=== PATIENT | female | born 1995 | race Caucasian/White ===

== ENCOUNTER 2017-10-21 10:12 | Outpatient (CLI) | payer MEDICAID, SELFPAY ==
[2017-10-21 10:46] LABS: HCT 33.1 % (36.0-46.0); HGB 11.1 g/dL (12.0-15.5); Mean Corp. HGB Concentration 33.5 g/dL (32.0-36.0); Mean Corpuscular Volume 95.4 fL (80-95); Mean Platelet Volume 11.4 fL (8.0-11.0); Platelet Count 226 x1000/uL (130-400); RBC 3.47 m/cumm (4.00-5.20); RBC Distribution Width 12.3 % (11.7-14.6); White Blood Cell Count 9.61 k/cumm (4.4-10.8)
[2017-10-21 10:50] LABS: Glucose,1 Hr (Glucola) 80 mg/dL (80-140)
== END 2017-10-21 10:32 ==
PROVIDERS: PCP Family Medicine; Visit Provider Obstetrics & Gynecology Gynecology
DX: Z34.83 Encounter for supervision of other normal pregnancy, third trimester (principal)
CPT/HCPCS: 36415; 82950; 85027

== ENCOUNTER 2017-11-22 12:55 | Observation (INO) | payer MEDICAID, SELFPAY ==
[2017-11-22] MEDS: Lactated Ringers 1,000 ML 1000 ML IV (14:49)
[2017-11-22] MEDS: Normal Saline Flush 10 ML SYR 20 ML (14:49)
[2017-11-22] MEDS: Lactated Ringers 1,000 ML 200 ML IV (16:14)
[2017-11-22 16:20] LABS: Bilirubin Negative (Negative); Blood Trace-intact (Negative); Clarity Clear; Glucose Negative (Negative); Ketones Negative (Negative); Leukocyte Esterase Negative (Negative); Nitrite Negative (Negative); Urobilinogen 0.2 EU/dL (Up TO 0.2)
[2017-11-22 16:43] LABS: Bacteria Negative HPF (Negative); C & S Indicated? C&S Done As Ordered; Casts Negative LPF (Negative); Crystals Negative HPF (Negative); Epithelial Cells Negative HPF (Negative); Mucus Negative (Negative); Other Cells Negative (Negative); RBC Negative (0-2); WBC Negative HPF (0-5)
[2017-11-22] MEDS: Terbutaline 1 MG/ML VIAL 0.25 MG SC (17:21)
[2017-11-23 18:05] LABS: Chlamydia Result Negative; GC Result Negative; Specimen Description CERVIX
== END 2017-11-22 19:05 | disposition home or self-care (01) ==
PROVIDERS: Admitting Provider Advanced Practice Midwife; PCP Family Medicine; Visit Provider Advanced Practice Midwife
DX: O60.03 Preterm labor without delivery, third trimester (principal); Z3A.33 33 weeks gestation of pregnancy
CPT/HCPCS: 87491; 87591; 96360; 96361; 81003; 81015; 87086; 87480; 87510; 87660; G0378

== ENCOUNTER 2017-11-23 15:58 | Outpatient (CLI) | payer MEDICAID, SELFPAY | END 2017-11-23 16:18 | PROVIDERS: PCP Family Medicine; Visit Provider Advanced Practice Midwife | DX: O60.03 Preterm labor without delivery, third trimester (principal); Z3A.33 33 weeks gestation of pregnancy | CPT/HCPCS: 59025 ==

== ENCOUNTER 2017-12-03 17:57 | Outpatient (CLI) | payer MEDICAID, SELFPAY | END 2017-12-03 18:17 | PROVIDERS: PCP Family Medicine; Visit Provider Advanced Practice Midwife | DX: O60.03 Preterm labor without delivery, third trimester (principal); Z3A.34 34 weeks gestation of pregnancy | CPT/HCPCS: 59025 ==

== ENCOUNTER 2017-12-16 16:32 | Outpatient (REF) | payer MEDICAID, SELFPAY | END 2017-12-16 16:52 | LOC: LBN 16:32 | PROVIDERS: PCP Family Medicine; Visit Provider Advanced Practice Midwife | DX: Z34.93 Encounter for supervision of normal pregnancy, unspecified, third trimester (principal); Z36.85 Encounter for antenatal screening for Streptococcus B | CPT/HCPCS: 87081 ==

== ENCOUNTER 2017-12-19 20:59 | Observation (INO) | payer MEDICAID, SELFPAY | END 2017-12-19 22:05 | disposition home or self-care (01) | LOC: OBS 21:10 | PROVIDERS: Admitting Provider Nurse Practitioner; PCP Family Medicine; Visit Provider Nurse Practitioner | DX: O47.1 False labor at or after 37 completed weeks of gestation (principal); Z3A.37 37 weeks gestation of pregnancy | CPT/HCPCS: G0378 ==

== ENCOUNTER 2017-12-25 20:57 | Observation (INO) | payer MEDICAID, SELFPAY | END 2017-12-25 22:15 | disposition home or self-care (01) | LOC: OBS 21:04 | PROVIDERS: Admitting Provider Advanced Practice Midwife; PCP Family Medicine; Visit Provider Advanced Practice Midwife | DX: O47.03 False labor before 37 completed weeks of gestation, third trimester (principal); O98.313 Other infections with a predominantly sexual mode of transmission complicating pregnancy, third trimester; Z3A.38 38 weeks gestation of pregnancy; O99.820 Streptococcus B carrier state complicating pregnancy | CPT/HCPCS: G0378 ==

== ENCOUNTER 2017-12-29 10:00 | Inpatient (IN) | payer MEDICAID, SELFPAY ==
[2017-12-29 11:03] LABS: ROM Plus Positive
[2017-12-29 12:22] LABS: HCT 35.7 % (36.0-46.0); Mean Corp. HGB Concentration 33.6 g/dL (32.0-36.0); Mean Corpuscular Hemoglobin 31.5 pg (27.0-33.0); Mean Corpuscular Volume 93.7 fL (80-95); Mean Platelet Volume 12.9 fL (8.0-11.0); Platelet Count 204 x1000/uL (130-400); RBC 3.81 m/cumm (4.00-5.20); RBC Distribution Width 12.5 % (11.7-14.6); White Blood Cell Count 9.37 k/cumm (4.4-10.8)
[2017-12-29] MEDS: valACYclovir 500 MG TAB PO (22:16)
[2017-12-30] MEDS: Lactated Ringers 1,000 ML 125 ML IV ×2 (01:09→10:45)
[2017-12-30] MEDS: Hamamelis Leaf/Glycerin 100 EACH BOX PR (09:16)
[2017-12-30] MEDS: Acetaminophen 325 MG TAB 650 MG PO (18:22)
[2017-12-30] MEDS: valACYclovir 500 MG TAB PO (22:39)
[2017-12-31 05:52] LABS: HCT 31.7 % (36.0-46.0); HGB 10.4 g/dL (12.0-15.5); Mean Corp. HGB Concentration 32.8 g/dL (32.0-36.0); Mean Corpuscular Hemoglobin 31.5 pg (27.0-33.0); Mean Corpuscular Volume 96.1 fL (80-95); Platelet Count 200 x1000/uL (130-400); RBC Distribution Width 12.8 % (11.7-14.6)
[2017-12-31] MEDS: valACYclovir 500 MG TAB PO (21:34)
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
== END 2018-01-01 12:30 | disposition home or self-care (01) | DRG 806 ==
PROVIDERS: Admitting Provider Nurse Practitioner; PCP Family Medicine; Visit Provider Nurse Practitioner
DX: O99.824 Streptococcus B carrier state complicating childbirth (principal); O98.32 Other infections with a predominantly sexual mode of transmission complicating childbirth; Z37.0 Single live birth; O76 Abnormality in fetal heart rate and rhythm complicating labor and delivery; O69.2XX0 Labor and delivery complicated by other cord entanglement, with compression, not applicable or unspecified; O75.89 Other specified complications of labor and delivery; O92.79 Other disorders of lactation; Z3A.38 38 weeks gestation of pregnancy; A60.00 Herpesviral infection of urogenital system, unspecified
CPT/HCPCS: 36415; 84112; 85027; 86850; 86900; 86901; 99239; J2540; J3490

== ENCOUNTER 2018-06-06 15:54 | Emergency (ER) | payer MEDICAID, SELFPAY ==
[2018-06-06 15:57] VITALS: BP 97/64; PULSE 91; RESP 18; TEMP 36.4; O2SAT 96
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
[2018-06-06] MEDS: Acetaminophen 325 MG TAB 650 MG PO (16:09)
[2018-06-06] MEDS: Ibuprofen 600 MG TAB PO (16:09)
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
== END 2018-06-06 16:15 | disposition home or self-care (01) ==
LOC: ER 16:06
PROVIDERS: Emergency Provider Physician Assistant; PCP Family Medicine
DX: J06.9 Acute upper respiratory infection, unspecified (principal); R51 Headache; H92.02 Otalgia, left ear; R09.81 Nasal congestion
CPT/HCPCS: 99282

== ENCOUNTER 2018-11-17 17:01 | Emergency (ER) | payer MEDICAID, SELFPAY ==
[2018-11-17 17:17] VITALS: BP 119/73; PULSE 89; RESP 16; TEMP 36.6; O2SAT 98
[2018-11-17 17:48] LABS: Bilirubin Negative (Negative); Blood Moderate (Negative); Clarity Sl Cloudy (Clear); Glucose Negative (Negative); Ketones Negative (Negative); Leukocyte Esterase Moderate (Negative); Nitrite Negative (Negative); Urobilinogen 0.2 EU/dL (Up TO 0.2)
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
[2018-11-17 17:58] LABS: Bacteria Few HPF (Negative); C & S Indicated? Yes; Crystals Negative HPF (Negative); Epithelial Cells Few HPF (Negative); Mucus Negative (Negative); RBC 20-50 (0-2); WBC 20-50 HPF (0-5)
== END 2018-11-17 18:50 | disposition home or self-care (01) ==
PROVIDERS: Emergency Provider Physician Assistant; PCP Family Medicine
DX: N39.0 Urinary tract infection, site not specified (principal); B95.7 Other staphylococcus as the cause of diseases classified elsewhere
CPT/HCPCS: 87077; 99283; 81003; 81015; 87086

== ENCOUNTER 2019-07-16 16:45 | Outpatient (REF) | payer MEDICAID, SELFPAY ==
[2019-07-16 16:52] LABS: HCG Quant, Pregnancy < 1 mIU/mL (1-3)
== END 2019-07-16 17:05 ==
LOC: LBN 16:45
PROVIDERS: PCP Family Medicine; Visit Provider Obstetrics & Gynecology
DX: N91.2 Amenorrhea, unspecified (principal)
CPT/HCPCS: 84702

== ENCOUNTER 2019-10-22 22:06 | Outpatient (REF) | payer MEDICAID, SELFPAY ==
[2019-10-22 21:42] LABS: HCG Quant, Pregnancy 449 mIU/mL (1-3)
== END 2019-10-22 22:26 ==
LOC: LBN 22:06
PROVIDERS: PCP Family Medicine; Visit Provider Physician Assistant
DX: Z34.90 Encounter for supervision of normal pregnancy, unspecified, unspecified trimester (principal)
CPT/HCPCS: 84702

== ENCOUNTER 2019-10-25 03:48 | Outpatient (CLI) | payer MEDICAID, SELFPAY ==
[2019-10-25 17:58] LABS: HCG Quant, Pregnancy 1997 mIU/mL (1-3)
== END 2019-10-25 04:08 ==
PROVIDERS: PCP Family Medicine; Visit Provider Obstetrics & Gynecology
DX: Z34.90 Encounter for supervision of normal pregnancy, unspecified, unspecified trimester (principal)
CPT/HCPCS: 36415; 84702

== ENCOUNTER 2019-12-04 08:40 | Outpatient (CLI) | payer MEDICAID, SELFPAY ==
[2019-12-07 04:47] LABS: Patient Race White; SARS-CoV-2 RNA Undetected (Undetected); SARS-CoV-2 Specimen Source Nasal
== END 2019-12-04 09:00 ==
PROVIDERS: PCP Family Medicine; Visit Provider Family Medicine
DX: Z11.59 Encounter for screening for other viral diseases (principal)
CPT/HCPCS: U0003

== ENCOUNTER 2019-12-17 02:29 | Outpatient (CLI) | payer MEDICAID, SELFPAY ==
[2019-12-17 16:22] LABS: Abs Immature Grans 0.01 10^3/uL (0.0-0.06); Absolute Basophil Count 0.04 10^3/uL (0.0-0.2); Absolute Eosinophil Count 0.31 10^3/uL (0.0-0.7); Absolute Lymphocyte Count 2.38 10^3/uL (1.2-3.4); Absolute Monocyte Count 0.43 10^3/uL (0.1-0.8); Absolute Neutrophil Count 4.38 10^3/uL (1.2-6.7); Basophils % 0.5; Eosinophils % 4.1; HCT 35.1 % (36.0-46.0); HGB 12.1 g/dL (11.2-15.7); Immature Grans % 0.1; Lymphocytes % 31.5; MCH 30.8 pg (27.0-33.0); MCHC 34.5 % (32.0-36.0); MCV 89.3 fL (80-95); Monocytes % 5.7; Neutrophils % 58.1; Nucleated RBC 0 %; RBC 3.93 10^6/uL (3.93-5.22); RDW-SD 39.2 fL
[2019-12-17 16:38] LABS: WBC 7.55 10^3/uL (4.4-10.8)
[2019-12-17 17:05] LABS: TSH (W/Ref FT4) 1.89 uIU/mL (0.36-3.74)
[2019-12-19 13:34] LABS: Syphilis Total Ab w/Reflex Nonreactive (Nonreactive)
[2019-12-19 14:39] LABS: HIV-1/2 Ag & Ab Screen Negative (Negative)
[2019-12-25 15:07] LABS: Hepatitis B Surface Ag Negative (Negative); Hepatitis C Ab w Rflx HCV PCR Negative (Negative)
[2019-12-25 15:08] LABS: Rubella IgG Ab (UVM) Negative
[2019-12-25 15:09] LABS: Varicella IgG Antibody Positive
== END 2019-12-17 02:49 ==
PROVIDERS: PCP Family Medicine; Visit Provider Advanced Practice Midwife
DX: Z34.91 Encounter for supervision of normal pregnancy, unspecified, first trimester (principal); Z11.4 Encounter for screening for human immunodeficiency virus [HIV]; Z11.59 Encounter for screening for other viral diseases; Z01.84 Encounter for antibody response examination
CPT/HCPCS: 36415; 86787; 86803; 86850; 86900; 86901; 87340; 87389; 84443; 85025; 86762; 86780

== ENCOUNTER 2019-12-17 15:45 | Outpatient (REF) | payer MEDICAID, SELFPAY ==
--- NOTE | 2019-12-17 15:00 | PAPFT_PTH ---
PATIENT: Nighat Kuo LOC: [facility] U#:[id number] AGE/SX: 24/F ROOM: RE12/17/[address]: Ruthann Muro RN : 1995 BED: DIS: 12/17/2019 SPEC #: [id number] RECD: 12/18/19 12:40 STATUS: JANI REQ #: [id number] ARIA: 12/17/19 15:[address]: Ruthann Muro DEPT: [facility] Cytology RECD BY: Estella Mary ENTERED: 12/18/19 12:41 SP TYPE: PAPFT OTHR DR: Raoul Fletcher MD Tissues: 1 - CX/ENDOCX FOR PAP SMEARS Procedures: PAP THIN PREP/UVM Screening Comments: [id number] (CVPH#)
[2019-12-17 17:23] LABS: *AMPHETAMINES SCREEN URINE Negative (Negative); *BARBITURATES SCREEN URINE Negative (Negative); *BENZODIAZEPINES SCREEN URINE Negative (Negative); Cannabinoids THC Negative (Negative); Cocaine Screen,Urine Negative (Negative); METHADONE URINE SCREEN Negative (Negative); OPIATES URINE SCREEN Negative (Negative)
[2019-12-17 17:27] LABS: Tricyclic Antidepressants Negative (Negative)
[2019-12-20 00:42] LABS: Chlamydia amplified RNA Negative (Negative); N gonorrhoeae amplified RNA Negative (Negative); Source CERVICAL
[2019-12-22 11:08] LABS: Buprenorphine Negative; Norbuprenorphine Negative
== END 2019-12-17 16:05 ==
LOC: LBN 15:45
PROVIDERS: PCP Family Medicine; Visit Provider Advanced Practice Midwife
DX: Z34.91 Encounter for supervision of normal pregnancy, unspecified, first trimester (principal); Z12.4 Encounter for screening for malignant neoplasm of cervix
CPT/HCPCS: 80307; 87491; 87591; 88142; 87086

== ENCOUNTER 2020-01-30 01:07 | Outpatient (CLI) | payer MEDICAID, SELFPAY ==
--- NOTE | 2020-01-30 08:00 | DI.US_ITS ---
EXAM: US OB 2-3 TRIMESTER CLINICAL HISTORY: 18 wk anatomy survey.Z34.90. TECHNIQUE: Transabdominal obstetrical ultrasound performed. COMPARISON: US ABDOMEN PELVIS ULTRASOUND from 08/18/2017 FINDINGS: Transabdominal obstetrical ultrasound performed. FINDINGS: Number of fetuses: One. position: Varied during the examination. heart rate: 141 bpm. Placental location: Anterior and to the right. No evidence of previa. BIOMETRIC DATA: Composite Age: 19 weeks 1 day EDC: 06/24/2020 Heart Rate: 141BPM Amniotic fluid index: Amount of fluid is within normal limits. ANATOMICAL SURVEY: Within normal limits. BPD: 4.2cm HC: 16.1cm AC: 13.7cm FL: 3cm Cisterna Magna: 3.0 mm Cerebellum: 1.95 cm Composite Age: 19 weeks 1 day EDC by US: 06/24/2020 Heart Rate: 141BPM IMPRESSION: 1. Single live intrauterine gestation as above. 2. Normal anatomic survey. DATA REPOSITORY:
== END 2020-01-30 01:27 ==
PROVIDERS: PCP Family Medicine; Visit Provider Advanced Practice Midwife
DX: Z34.92 Encounter for supervision of normal pregnancy, unspecified, second trimester (principal)
CPT/HCPCS: 76805

== ENCOUNTER 2020-02-29 11:02 | Outpatient (CLI) | payer MEDICAID, SELFPAY ==
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
== END 2020-02-29 11:22 ==
PROVIDERS: PCP Family Medicine; Visit Provider Advanced Practice Midwife
DX: O9A.212 Injury, poisoning and certain other consequences of external causes complicating pregnancy, second trimester (principal)
CPT/HCPCS: 76815

== ENCOUNTER 2020-03-21 21:40 | Outpatient (CLI) | payer MEDICAID, SELFPAY ==
[2020-03-21 22:07] VITALS: BP 102/61; PULSE 88
[2020-03-21 22:10] VITALS: BP 102/61; PULSE 88; RESP 18; TEMP 36.7
[2020-03-21 22:52] LABS: Bilirubin Negative (Negative); Blood Negative (Negative); Clarity Clear (Clear); Glucose Negative (Negative); Ketones Negative (Negative); Leukocyte Esterase Small (Negative); Nitrite Negative (Negative); Specific Gravity 1.015 (1.005-1.025); Urobilinogen 0.2 EU/dL (Up TO 0.2)
[2020-03-21 22:55] LABS: Bacteria Few HPF (Negative); C & S Indicated? No/Sq. Contamination; Casts Negative LPF (Negative); Crystals Negative HPF (Negative); Epithelial Cells Moderate HPF (Negative); Mucus Negative (Negative); RBC Negative HPF (0-2)
--- NOTE | 2020-03-22 16:15 | PDOC.NST_ITS ---
Date of service: 03/21/20 Time of Service: 22:30 NST Evaluation Reason for NST Reasons for Nonstress Test: LABOR Gestational Age Gestational Age in Weeks and Days: 25 Weeks and 5Days Test and Monitor Explained Test/Monitor Explained: Test Explained NST Information Date on Monitor: 03/21/20 Time on Monitor: 22:00 NST Interventions: None and PO Hydration NST Evaluation Patient States Movement: Present FHR Baseline: 135 Variability: Moderate 6-25 bpm Accelerations: 10x10 Decelerations: None NST Results: Reactive Note NST Note Note: Shiela called and reported having painless tightening of her abdomen at h ome. She was encouraged to drink water and she came in for evaluation for contractions. There was no evidence of labor and she was given instructions to call with signs of labor. UA sent. Await results. NST Reviewed and Verified by: Shanell More
== END 2020-03-21 22:40 ==
LOC: BCD 21:44 → OBS 21:57
PROVIDERS: PCP Family Medicine; Visit Provider Advanced Practice Midwife
DX: O60.02 Preterm labor without delivery, second trimester (principal); Z3A.25 25 weeks gestation of pregnancy
CPT/HCPCS: 59025; 81003; 81015

== ENCOUNTER 2020-04-11 02:19 | Outpatient (CLI) | payer MEDICAID, SELFPAY ==
[2020-04-11 13:59] LABS: HCT 30.4 % (36.0-46.0); HGB 10.6 g/dL (11.2-15.7); MCH 31.6 pg (27.0-33.0); MCHC 34.9 % (32.0-36.0); MCV 90.7 fL (80-95); MPV 12.3 fL (8.0-11.0); Platelet Count 220 10^3/uL (130-400); RBC 3.35 10^6/uL (3.93-5.22); RDW 12.1 % (11.7-14.6); WBC 10.63 10^3/uL (4.4-10.8)
[2020-04-11 14:22] LABS: Glucose,1 Hr (Glucola) 122 mg/dL (80-140)
== END 2020-04-11 02:20 | disposition home or self-care (01) ==
LOC: LBO 02:22
PROVIDERS: Advanced Practice Midwife; PCP Family Medicine; Visit Provider Advanced Practice Midwife
DX: Z34.93 Encounter for supervision of normal pregnancy, unspecified, third trimester (principal); Z3A.28 28 weeks gestation of pregnancy
CPT/HCPCS: 36415; 82950; 85027

== ENCOUNTER 2020-05-30 13:50 | Outpatient (REF) | payer MEDICAID, SELFPAY ==
[2020-05-30 16:06] LABS: Bilirubin Negative (Negative); Blood Negative (Negative); Clarity Cloudy (Clear); Glucose Negative (Negative); Ketones Negative (Negative); Leukocyte Esterase Moderate (Negative); Nitrite Negative (Negative); Specific Gravity 1.015 (1.005-1.025)
[2020-05-30 16:14] LABS: Bacteria Many HPF (Negative); C & S Indicated? No/Sq. Contamination; Casts Negative LPF (Negative); Crystals Negative HPF (Negative); Epithelial Cells Many HPF (Negative); Mucus Negative (Negative); Other Cells Negative (Negative); RBC Negative HPF (0-2)
== END 2020-05-30 13:51 | disposition home or self-care (01) ==
LOC: LBN 13:50
PROVIDERS: PCP Family Medicine; Visit Provider Advanced Practice Midwife
DX: R31.9 Hematuria, unspecified (principal)
CPT/HCPCS: 81003; 81015; 87086

== ENCOUNTER 2020-06-04 15:38 | Outpatient (REF) | payer MEDICAID, SELFPAY ==
[2020-06-04 16:40] LABS: *AMPHETAMINES SCREEN URINE Negative (Negative); *BARBITURATES SCREEN URINE Negative (Negative); *BENZODIAZEPINES SCREEN URINE Negative (Negative); Cannabinoids THC Negative (Negative); Cocaine Screen,Urine Negative (Negative); METHADONE URINE SCREEN Negative (Negative); OPIATES URINE SCREEN Negative (Negative)
[2020-06-04 16:41] LABS: Tricyclic Antidepressants Negative (Negative)
[2020-06-10 12:41] LABS: Buprenorphine Negative ng/mL (Cutoff: 5.0)
== END 2020-06-04 15:39 | disposition home or self-care (01) ==
LOC: LBN 15:38
PROVIDERS: PCP Family Medicine; Visit Provider Advanced Practice Midwife
DX: Z34.93 Encounter for supervision of normal pregnancy, unspecified, third trimester (principal); Z36.85 Encounter for antenatal screening for Streptococcus B; Z3A.36 36 weeks gestation of pregnancy
CPT/HCPCS: 80307; 87081

== ENCOUNTER 2020-06-18 15:19 | Outpatient (CLI) | payer MEDICAID, SELFPAY ==
--- NOTE | 2020-06-18 16:34 | W.OBNST ---
Date of service: 06/18/20 Time of Service: 16:35 NST Evaluation Reason for NST Reasons for Nonstress Test: OTHER, SEE COMMENT Reason for NST Other: rule out labor Gestational Age Gestational Age in Weeks and Days: 38 Weeks and 3Days Test and Monitor Explained Test/Monitor Explained: Test Explained, Monitor Explained and Patient Verbalized Understanding Urine Results Urine Protein: Negative Urine Ketones: Negative Urine Glucose: Negative Urine Blood: Negative NST Information Date on Monitor: 06/18/20 Time on Monitor: 14:47 Date off Monitor: 06/18/20 Time off Monitor: 15:34 Total Time on Monitor: 47 NST Interventions: PO Hydration NST Evaluation Patient States Movement: Present FHR Baseline: 140 Variability: Moderate 6-25 bpm Accelerations: 15x15 Decelerations: None NST Results: Reactive Note NST Note Note: not in labor, discharged to home NST Reviewed and Verified by: Claribel Chaparro
== END 2020-06-18 16:15 | disposition home or self-care (01) ==
LOC: BCD 15:20 → OBS 15:23
PROVIDERS: PCP Family Medicine; Visit Provider Advanced Practice Midwife
DX: O47.1 False labor at or after 37 completed weeks of gestation (principal); Z3A.38 38 weeks gestation of pregnancy
CPT/HCPCS: 59025

== ENCOUNTER 2020-06-23 22:36 | Outpatient (CLI) | payer MEDICAID, SELFPAY ==
[2020-06-23 20:21] VITALS: BP 116/78; PULSE 86
[2020-06-23 20:22] VITALS: PULSE 101; O2SAT 98
[2020-06-23 20:25] VITALS: BP 116/78; PULSE 101; RESP 16; TEMP 36.5; O2SAT 98
[2020-06-23 20:52] VITALS: BP 116/78; PULSE 101; TEMP 207.9; TEMP 97.7
[2020-06-23 22:36] VITALS: BP 116/78; PULSE 101; TEMP 207.9; TEMP 97.7
--- NOTE | 2020-06-23 22:36 | W.OBNST ---
Date of service: 06/23/20 Time of Service: 22:36 NST Evaluation Reason for NST Reasons for Nonstress Test: FALSE LABOR Gestational Age Gestational Age in Weeks and Days: 39 Weeks and 1Days Test and Monitor Explained Test/Monitor Explained: Test Explained, Monitor Explained and Patient Verbalized Understanding Vital Signs Blood Pressure: 116/78 Pulse: 101 Temperature: 207.9 F Urine Results Urine Protein: Negative Urine Ketones: Negative Urine Glucose: Negative Urine Blood: Negative NST Information Date on Monitor: 06/23/20 Time on Monitor: 20:20 Date off Monitor: 06/23/20 Time off Monitor: 20:51 Total Time on Monitor: 31 NST Interventions: None NST Evaluation Patient States Movement: Present FHR Baseline: 130 Variability: Moderate 6-25 bpm Accelerations: 15x15 Decelerations: None NST Results: Reactive Note NST Note Note: not in labor, cvx 2-3/50% posterior, vtx -3, discharged to home NST Reviewed and Verified by: Claribel Chaparro
[2020-06-24 11:31] VITALS: BP 134/75; PULSE 86
== END 2020-06-23 22:37 | disposition home or self-care (01) ==
PROVIDERS: PCP Family Medicine; Visit Provider Advanced Practice Midwife
DX: O47.1 False labor at or after 37 completed weeks of gestation (principal); Z3A.39 39 weeks gestation of pregnancy
CPT/HCPCS: 59025

== ENCOUNTER 2020-06-25 13:10 | Outpatient (CLI) | payer MEDICAID, SELFPAY ==
[2020-06-25 13:56] LABS: ROM Plus Negative
[2020-06-25 14:15] VITALS: BP 113/77; PULSE 100; TEMP 36.5
--- NOTE | 2020-06-30 09:55 | W.OBNST ---
Date of service: 06/25/20 Time of Service: 16:00 NST Evaluation Reason for NST Reasons for Nonstress Test: OTHER, SEE COMMENT Gestational Age Gestational Age in Weeks and Days: 40 Weeks and 0Days Test and Monitor Explained Test/Monitor Explained: Test Explained, Monitor Explained and Patient Verbalized Understanding Vital Signs Blood Pressure: 113/77 Pulse: 100 Temperature: 97.7 F NST Information Date on Monitor: 06/25/20 Time on Monitor: 12:40 Date off Monitor: 06/25/20 Time off Monitor: 14:15 Total Time on Monitor: 95 NST Interventions: None NST Evaluation Patient States Movement: Present FHR Baseline: 135 Variability: Marked >25 bpm Accelerations: 15x15 Decelerations: None NST Results: Reactive Note NST Note Note: Nighat noticed an odor while taking the shower and wonders if her membranes ruptured. She denies any leaking of fluid after her shower. ROM- Plus is negative. Signs of labor reviewed. NST Reviewed and Verified by: Shanell More
[2020-06-30 09:56] VITALS: BP 113/77; PULSE 100; TEMP 36.5
== END 2020-06-25 14:20 | disposition home or self-care (01) ==
LOC: BCD 13:14 → OBS 13:43
PROVIDERS: PCP Family Medicine; Visit Provider Advanced Practice Midwife
DX: O47.1 False labor at or after 37 completed weeks of gestation (principal); Z3A.40 40 weeks gestation of pregnancy
CPT/HCPCS: 59025; 84112

== ENCOUNTER 2020-06-29 09:21 | Inpatient (IN) | payer MEDICAID, SELFPAY ==
[2020-06-29] VITALS (15 sets, daily range): BP systolic 118–132; BP diastolic 71–88; PULSE 74–121; RESP 14–18; TEMP 36.7–36.9; O2SAT 96–98
[2020-06-29 10:07] LABS: Source Nasal/Nares
[2020-06-29 10:09] LABS: HCT 31.8 % (36.0-46.0); HGB 10.3 g/dL (11.2-15.7); MCH 27.5 pg (27.0-33.0); MCHC 32.4 % (32.0-36.0); MCV 84.8 fL (80-95); MPV 13.2 fL (8.0-11.0); RBC 3.75 10^6/uL (3.93-5.22); RDW 13.1 % (11.7-14.6); RDW-SD 40.2 fL
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
[2020-06-29 10:53] LABS: COVID-19 PCR Negative (Negative)
[2020-06-29] MEDS: Oxytocin 10 UNITS/ML VIAL IM (11:07)
--- NOTE | 2020-06-29 11:32 | OBVDS_ITS ---
Date of service: 06/29/20 Time of Service: 11:32 OB Labor/ Delivery Information Baby A Delivery Delivery Method: Spontaneaous Presentation: Cephalic Cephalic Position: Vertex Vertex Position: Left Occipital Anterior Breech Position: N/A Cord Description-Baby A: 3 Vessels Amniotic Fluid: Clear Estimated Blood Loss: 250 ml Delivery Outcome: Liveborn Transferred: Remains with Mother Note: First vaginal exam by CNM 30 minutes after pt arrived to unit 7/90% LOP -2 with bulging forebag and category 1 tracing, repeat exam 30 minutes later 8/100 vtx 0, AROM of forebag for moderate amt straw colored fluid. Pt positioned LLP and intermittent auscultation done, pt dozed between contractions then ambulated to BR to void/BM, returned to bed, SVE for ant lip and +2 with spontaneous urges to push. 2nd stage huddle completed, of vigorous male infant over intact perineum, shoulders delivered easily, to mother's arms immediately. Pitocin 10 units given IM, cord ceased pulsating at 6 minutes, clamped and cut by FOB, cord blood collected, Bustamante placenta intact with 3VC, vulva and vagina inspected and found to be without laceration. Minimal rubra with fundus firm below umbilicus, apgars 8/9, weight 3730 gms. Providers Nurse Professor Of Theology: Calribel Chaparro Computer Numerical Control Programmer: Jimy Huerta Nurse: Tuan Schilling Nurse: Alexia Dorman Labor/Delivery Information Number of Babies in Womb: 1 Steroids Given: None Reason Steroids Not Administered: N/A Group Beta Strep: Negative Antibiotics Administered: No Rubella Status: Nonimmune Blood Type: AB+ Varicella Immunity: Immune Maternal Complications: None Shoulder Dystocia: No Stages of Labor Onset of Labor Date: 06/29/20 Onset of Labor Time: 00:00 Complete Dilatation Date: 06/29/20 Complete Dilatation Time: 10:55 Labor - Stage 1 Duration: 0 minutes ROM Baby A: 06/29/20 ROM Baby A: 06:30 Delivery Date-Baby A: 06/29/20 Delivery Time-Baby A: 11:05 Labor Stage 2 Duration: 10 minutes Placenta Delivery Date-Baby A: 06/29/20 Placenta Delivery Time-Baby A: 11:13 Labor-Stage 3 Duration: 8 minutes Total Length of Labor-Baby A: 11 hours and 5 minutes Placenta Cultured: No Placenta Status: Delivered Baby A Infant Gender: Male Gestational Status: Term (39-41.6 wks) Gestational Age in Weeks/Days: 40 Weeks and 0 Days weight: 8 lb 3.572 oz Weight Comment: 3730 gms Score-1 Minute Interval(Baby A) Heart Rate-1 minute: 100 BPM or Greater Respiratory Effort- 1 minute: Spontaneous/Strong Cry Muscle Tone-1 minute: Active Movement Reflex Response-1 minute: Prompt Response Color-1 minute: Pallor or Cyanosis Total Score-1 minute: 8 Score-5 Minute Interval(Baby A) Heart Rate- 5 minute: 100 BPM or Greater Respiratory Effort-5 minute: Spontaneous/Strong Cry Muscle Tone-5 minute: Active Movement Reflex Response-5 minute: Prompt Response Color-5 minute: Bluish Hands or Feet Total Score- 5 minute: 9 Procedure Procedures: Cord Blood Collection
[2020-06-30 00:32] VITALS: BP 124/83; PULSE 64; RESP 16; TEMP 36.9; O2SAT 98
--- NOTE | 2020-06-30 00:35 | NUR.NOTE ---
Nursing Note: [id number] flat clot noted, no significant bleeding at this time, fundus firm, continue to monitor.
[2020-06-30 04:00] VITALS: BP 123/75; PULSE 83; RESP 44; TEMP 37
[2020-06-30 06:40] LABS: HGB 9.9 g/dL (11.2-15.7); MCHC 31.9 % (32.0-36.0); MCV 84.7 fL (80-95); MPV 12.8 fL (8.0-11.0); Platelet Count 195 10^3/uL (130-400); RBC 3.66 10^6/uL (3.93-5.22); RDW 13.2 % (11.7-14.6); RDW-SD 40.8 fL; WBC 11.77 10^3/uL (4.4-10.8)
[2020-06-30 07:50] VITALS: BP 118/91; PULSE 88; RESP 12; TEMP 37.3
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
[2020-06-30] MEDS: Measles, Mumps, & Rubella Vaccine 0.5 ML VIAL SC (10:14)
== END 2020-06-30 16:13 | disposition home or self-care (01) | DRG 807 ==
PROVIDERS: Admitting Provider Advanced Practice Midwife; PCP Family Medicine; Visit Provider Advanced Practice Midwife
DX: O98.32 Other infections with a predominantly sexual mode of transmission complicating childbirth (principal); Z37.0 Single live birth; Z3A.40 40 weeks gestation of pregnancy; O99.02 Anemia complicating childbirth; O75.89 Other specified complications of labor and delivery; D64.9 Anemia, unspecified; M54.31 Sciatica, right side; A60.00 Herpesviral infection of urogenital system, unspecified
CPT/HCPCS: 36415; 85027; 86850; 86900; 86901; 87635; J2590

== ENCOUNTER 2020-10-27 15:11 | Outpatient (REF) | payer MEDICAID, SELFPAY ==
[2020-10-28 02:17] LABS: COVID-19 RT-PCR UVMMC Result Negative (Negative)
== END 2020-10-27 15:12 | disposition home or self-care (01) ==
LOC: LBN 15:11
PROVIDERS: PCP Family Medicine; Visit Provider Nurse Practitioner Family
DX: J02.9 Acute pharyngitis, unspecified (principal); Z20.822 Contact with and (suspected) exposure to COVID-19
CPT/HCPCS: U0003; 87070

== ENCOUNTER 2021-01-09 12:35 | Outpatient (CLI) | payer MEDICAID, SELFPAY ==
[2021-01-09] MEDS: Normal Saline Flush 10 ML SYR IVP (14:01)
[2021-01-09] MEDS: Normal Saline 500 ML 30 ML IV (14:18)
[2021-01-09 14:24] VITALS: BP 99/68; PULSE 92; RESP 16; TEMP 36.5; O2SAT 88
[2021-01-09 14:45] VITALS: BP 95/62; PULSE 82; RESP 16; TEMP 36.6; O2SAT 98
[2021-01-09 15:00] VITALS: BP 107/70; PULSE 73; RESP 18; TEMP 36.5; O2SAT 98
[2021-01-09 15:20] VITALS: BP 91/63; PULSE 90; RESP 16; TEMP 37.9; O2SAT 95
[2021-01-09 15:37] VITALS: BP 99/64; PULSE 88; RESP 18; TEMP 36.8; O2SAT 98
== END 2021-01-09 12:36 | disposition home or self-care (01) ==
LOC: INF 12:36
PROVIDERS: PCP Family Medicine; Visit Provider Family Medicine
DX: U07.1 COVID-19 (principal)
CPT/HCPCS: 96365

== ENCOUNTER 2021-01-12 03:03 | Outpatient (CLI) | payer MEDICAID, SELFPAY ==
[2021-01-12 10:52] LABS: Abs Immature Grans 0.02 10^3/uL (0.0-0.06); Absolute Basophil Count 0.03 10^3/uL (0.0-0.2); Absolute Eosinophil Count 0.15 10^3/uL (0.0-0.7); Absolute Lymphocyte Count 2.35 10^3/uL (1.2-3.4); Absolute Monocyte Count 0.62 10^3/uL (0.1-0.8); Absolute Neutrophil Count 3.93 10^3/uL (1.2-6.7); Basophils % 0.4; Eosinophils % 2.1; HCT 35.9 % (36.0-46.0); HGB 12.5 g/dL (11.2-15.7); Immature Grans % 0.3; Lymphocytes % 33.1; MCHC 34.8 % (32.0-36.0); MCV 86.3 fL (80-95); MPV 12.5 fL (8.0-11.0); Monocytes % 8.7; Neutrophils % 55.4; Nucleated RBC 0 %; Platelet Count 197 10^3/uL (130-400); RBC 4.16 10^6/uL (3.93-5.22); RDW 12.9 % (11.7-14.6); RDW-SD 39.7 fL
[2021-01-12 12:01] LABS: TSH (W/Ref FT4) 3.04 uIU/mL (0.36-3.74)
[2021-01-13 10:02] LABS: Hepatitis B Surface Ag Negative (Negative)
[2021-01-13 10:51] LABS: Varicella IgG Antibody Positive (See Note)
[2021-01-13 10:53] LABS: HIV-1/2 Ag & Ab Screen Negative (Negative)
[2021-01-13 10:55] LABS: Rubella IgG Ab (UVM) Positive (See Note)
[2021-01-13 11:07] LABS: Hepatitis C Ab w Rflx HCV PCR Negative (Negative)
[2021-01-14 11:12] LABS: Syphilis Total Ab w/Reflex Nonreactive (Nonreactive)
== END 2021-01-12 03:04 | disposition home or self-care (01) ==
LOC: LBO 03:03
PROVIDERS: Advanced Practice Midwife; PCP Family Medicine; Visit Provider Advanced Practice Midwife
DX: Z34.91 Encounter for supervision of normal pregnancy, unspecified, first trimester; Z83.49 Family history of other endocrine, nutritional and metabolic diseases
CPT/HCPCS: 36415; 86787; 86803; 86850; 86900; 86901; 87340; 87389; 84443; 85025; 86762; 86780

== ENCOUNTER 2021-02-02 04:19 | Outpatient (CLI) | payer MEDICAID, SELFPAY ==
[2021-02-02 17:29] LABS: TSH (W/Ref FT4) 2.69 uIU/mL (0.36-3.74)
[2021-02-02 17:37] LABS: *AMPHETAMINES SCREEN URINE Negative (Negative); *BARBITURATES SCREEN URINE Negative (Negative); *BENZODIAZEPINES SCREEN URINE Negative (Negative); Cannabinoids THC Negative (Negative); Cocaine Screen,Urine Negative (Negative); METHADONE URINE SCREEN Negative (Negative); OPIATES URINE SCREEN Negative (Negative)
[2021-02-02 17:38] LABS: Tricyclic Antidepressants Negative (Negative)
[2021-02-03 17:44] LABS: Thyroglobulin Antibody 292 U/mL (<=60); Thyroperoxidase Antibody >1300 U/mL (<=60)
[2021-02-10 14:51] LABS: Buprenorphine Negative ng/mL (Cutoff: 5.0); Norbuprenorphine Negative ng/mL (Cutoff: 2.5)
== END 2021-02-02 04:20 | disposition home or self-care (01) ==
LOC: LBO 04:19
PROVIDERS: Advanced Practice Midwife; PCP Family Medicine; Visit Provider Advanced Practice Midwife
DX: Z34.91 Encounter for supervision of normal pregnancy, unspecified, first trimester
CPT/HCPCS: 36415; 80307; 86376; 87491; 87591; 84443; 87086

== ENCOUNTER 2021-03-02 14:58 | Outpatient (REF) | payer MEDICAID, SELFPAY ==
[2021-03-03 15:11] LABS: Chlamydia Result Negative (Negative); GC Result Negative (Negative)
== END 2021-03-02 14:59 | disposition home or self-care (01) ==
LOC: LBN 14:58
PROVIDERS: PCP Family Medicine; Visit Provider Advanced Practice Midwife
DX: Z11.3 Encounter for screening for infections with a predominantly sexual mode of transmission (principal); Z34.92 Encounter for supervision of normal pregnancy, unspecified, second trimester
CPT/HCPCS: 87491; 87591

== ENCOUNTER 2021-03-24 12:01 | Outpatient (REF) | payer MEDICAID, SELFPAY ==
[2021-03-25 12:50] LABS: COVID-19 RT-PCR UVMMC Result Negative (Negative)
== END 2021-03-24 12:02 | disposition home or self-care (01) ==
LOC: LBN 12:01
PROVIDERS: PCP Family Medicine; Visit Provider Family Medicine
DX: Z20.822 Contact with and (suspected) exposure to COVID-19 (principal); J06.9 Acute upper respiratory infection, unspecified
CPT/HCPCS: U0003

== ENCOUNTER 2021-04-13 04:19 | Outpatient (CLI) | payer MEDICAID, SELFPAY ==
[2021-04-13 13:13] LABS: TSH (W/Ref FT4) 2.84 uIU/mL (0.36-3.74)
== END 2021-04-13 04:20 | disposition home or self-care (01) ==
LOC: LBO 04:19
PROVIDERS: PCP Family Medicine; Visit Provider Advanced Practice Midwife
DX: Z34.92 Encounter for supervision of normal pregnancy, unspecified, second trimester (principal)
CPT/HCPCS: 36415; 84443

== ENCOUNTER 2021-04-27 09:29 | Outpatient (CLI) | payer MEDICAID, SELFPAY ==
[2021-04-27 10:13] LABS: HCT 32.7 % (36.0-46.0); HGB 10.6 g/dL (11.2-15.7); MCH 30.1 pg (27.0-33.0); MCHC 32.4 % (32.0-36.0); MCV 92.9 fL (80-95); MPV 12.3 fL (8.0-11.0); Platelet Count 170 10^3/uL (130-400); RBC 3.52 10^6/uL (3.93-5.22); RDW 12.2 % (11.7-14.6); RDW-SD 41.4 fL; WBC 7.05 10^3/uL (4.4-10.8)
[2021-04-27 10:22] LABS: Glucose,1 Hr (Glucola) 102 mg/dL (80-140)
[2021-04-27 10:36] LABS: TSH (W/Ref FT4) 3.04 uIU/mL (0.36-3.74)
== END 2021-04-27 09:30 | disposition home or self-care (01) ==
LOC: LBO 09:30
PROVIDERS: PCP Family Medicine; Visit Provider Advanced Practice Midwife
DX: R76.8 Other specified abnormal immunological findings in serum (principal); Z34.92 Encounter for supervision of normal pregnancy, unspecified, second trimester
CPT/HCPCS: 36415; 82950; 85027; 84443

== ENCOUNTER 2021-04-27 09:55 | Outpatient (CLI) | payer MEDICAID, SELFPAY | END 2021-04-27 09:56 | disposition home or self-care (01) | LOC: LBO 09:56 | PROVIDERS: PCP Family Medicine; Visit Provider Advanced Practice Midwife ==

== ENCOUNTER 2021-05-25 01:23 | Outpatient (CLI) | payer MEDICAID, SELFPAY ==
--- NOTE | 2021-05-25 08:30 | DI.US_ITS ---
Exam(s) US OB MARIA R WEIGHT EXAM: US OB MARIA R WEIGHT CLINICAL HISTORY: MARIA R and weight,H/O COVID,Z86.16,Z34.90. TECHNIQUE: Transabdominal obstetrical ultrasound performed. COMPARISON: None FINDINGS:: Number of fetuses: One. position: Vertex. Spine toward maternal left. Placental location: Posterior. No evidence of previa. Grade 2-3 BIOMETRIC DATA: BPD: 82 mm = 33+1 weeks HC: 310mm = 34+5 weeks AC: 279mm = 31+ 6 weeks FL: 62 mm = 32 weeks EFW: 1947 Gms = 59% Composite Age: 33 weeks EDC: 13 July 2021 Heart Rate: 150BPM Amniotic fluid index: 15.8 cm. Amount of fluid is within normal limits. IMPRESSION: size and weight are within the expected range. DATA REPOSITORY:
== END 2021-05-25 01:43 ==
PROVIDERS: PCP Family Medicine; Visit Provider Advanced Practice Midwife
DX: O09.893 Supervision of other high risk pregnancies, third trimester (principal); Z86.16 Personal history of COVID-19; Z3A.32 32 weeks gestation of pregnancy
CPT/HCPCS: 76816

== ENCOUNTER 2021-06-06 16:16 | Outpatient (CLI) | payer MEDICAID, SELFPAY ==
[2021-06-06 16:22] VITALS: BP 110/73; PULSE 102; PULSE 104; PULSE 93; O2SAT 99
[2021-06-06 16:23] VITALS: TEMP 36.4
[2021-06-06 16:24] VITALS: BP 110/73; PULSE 93; TEMP 36.4
--- NOTE | 2021-06-06 17:50 | W.OBNST ---
Date of service: 06/06/21 Time of Service: 17:50 NST Evaluation Reason for NST Reasons for Nonstress Test: LABOR Gestational Age Gestational Age in Weeks and Days: 33 Weeks and 3Days Test and Monitor Explained Test/Monitor Explained: Test Explained, Monitor Explained and Patient Verbalized Understanding Vital Signs Blood Pressure: 110/73 Pulse: 93 Temperature: 97.5 F Urine Results Urine Protein: Negative Urine Ketones: Positive Urine Glucose: Negative Urine Blood: Negative NST Information Date on Monitor: 06/06/21 Time on Monitor: 16:25 Date off Monitor: 06/06/21 Time off Monitor: 17:36 Total Time on Monitor: 71 NST Interventions: PO Hydration Contraction Frequency: irregular and infrequent, mild NST Evaluation Patient States Movement: Present FHR Baseline: 130 Variability: Moderate 6-25 bpm Accelerations: 15x15 Decelerations: None NST Results: Reactive Note NST Note Note: Cvx closed/thick, vtx -4, intact membranes Pt states contractions began while she was leaving work 45 minutes 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 Next appt in 48 hrs, advised to keep the appt, call for concerns NST Reviewed and Verified by: Lisa Chaparro
[2021-06-06 17:52] VITALS: BP 110/73; PULSE 93; TEMP 36.4
== END 2021-06-06 17:39 | disposition home or self-care (01) ==
LOC: BCD 16:17 → OBS 16:17
PROVIDERS: PCP Family Medicine; Visit Provider Advanced Practice Midwife
DX: O47.03 False labor before 37 completed weeks of gestation, third trimester (principal); Z3A.33 33 weeks gestation of pregnancy
CPT/HCPCS: 59025

== ENCOUNTER 2021-06-18 20:36 | Observation (INO) | payer MEDICAID, SELFPAY ==
[2021-06-18 20:39] VITALS: BP 115/68; O2SAT 90
[2021-06-18 20:46] VITALS: BP 115/68; PULSE 90
[2021-06-18 20:51] LABS: Source Nasal/Nares
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
[2021-06-18 21:40] LABS: Fetal Fibronectin Negative (Negative)
[2021-06-18 21:47] LABS: COVID-19 PCR Negative (Negative)
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
--- NOTE | 2021-06-18 21:52 | W.OBNST ---
Date of service: 06/18/21 Time of Service: 21:20 NST Evaluation Reason for NST Reasons for Nonstress Test: LABOR Gestational Age Gestational Age in Weeks and Days: 35 Weeks and 1Days Test and Monitor Explained Test/Monitor Explained: Test Explained, Monitor Explained and Patient Verbalized Understanding Vital Signs Blood Pressure: 115/68 Pulse: 90 NST Information Date on Monitor: 06/18/21 Time on Monitor: 20:43 Date off Monitor: 06/18/21 Time off Monitor: 21:44 Total Time on Monitor: 61 NST Interventions: PO Hydration Contraction Frequency: 1 in 60 minutes Comments: patient very comfortable once in bed. KH NST Evaluation Patient States Movement: Present FHR Baseline: 130 Variability: Moderate 6-25 bpm Accelerations: 15x15 Decelerations: None NST Results: Reactive Note NST Note Note: NST due to contractions noted by patient at home. Resolved spontaneously. SSE done, FFN negative, cervix soft, external OS is 0.5 internal OS closed, 50%, VTX -3. Patient reassured and discharged to home ambulatory in satisfactory condition per her request. Reviewed PTL warning signs. Will keep outpatient appointment 06/22/21 as scheduled. SANDRA NST Reviewed and Verified by: Shanell Rose
[2021-06-18 21:58] VITALS: BP 115/68; PULSE 90
[2021-06-20 12:43] LABS: Chlamydia Result Negative (Negative); GC Result Negative (Negative)
== END 2021-06-18 21:50 | disposition home or self-care (01) ==
PROVIDERS: Admitting Provider Advanced Practice Midwife; PCP Family Medicine; Visit Provider Advanced Practice Midwife
DX: O26.893 Other specified pregnancy related conditions, third trimester (principal); O47.03 False labor before 37 completed weeks of gestation, third trimester; R10.2 Pelvic and perineal pain; Z3A.35 35 weeks gestation of pregnancy; O98.313 Other infections with a predominantly sexual mode of transmission complicating pregnancy, third trimester; A60.00 Herpesviral infection of urogenital system, unspecified; O99.013 Anemia complicating pregnancy, third trimester; Z20.822 Contact with and (suspected) exposure to COVID-19; D64.9 Anemia, unspecified; O99.613 Diseases of the digestive system complicating pregnancy, third trimester; K59.00 Constipation, unspecified; K21.9 Gastro-esophageal reflux disease without esophagitis; K02.9 Dental caries, unspecified; F32.A Depression, unspecified; Z86.16 Personal history of COVID-19; G57.01 Lesion of sciatic nerve, right lower limb; F43.10 Post-traumatic stress disorder, unspecified; Z62.810 Personal history of physical and sexual abuse in childhood; F90.9 Attention-deficit hyperactivity disorder, unspecified type; O99.343 Other mental disorders complicating pregnancy, third trimester
CPT/HCPCS: 87491; 87591; 87635; 82731; 87081; 87086; G0378

== ENCOUNTER 2021-06-30 15:23 | Outpatient (REF) | payer MEDICAID, SELFPAY ==
[2021-06-30 15:12] LABS: *AMPHETAMINES SCREEN URINE Negative (Negative); *BARBITURATES SCREEN URINE Negative (Negative); *BENZODIAZEPINES SCREEN URINE Negative (Negative); Cannabinoids THC Negative (Negative); Cocaine Screen,Urine Negative (Negative); METHADONE URINE SCREEN Negative (Negative); OPIATES URINE SCREEN Negative (Negative)
[2021-06-30 15:17] LABS: Tricyclic Antidepressants Negative (Negative)
[2021-07-08 09:48] LABS: Buprenorphine Negative ng/mL (Cutoff: 5.0); Norbuprenorphine Negative ng/mL (Cutoff: 2.5)
== END 2021-06-30 15:24 | disposition home or self-care (01) ==
LOC: LBN 15:23
PROVIDERS: PCP Family Medicine; Visit Provider Advanced Practice Midwife
DX: Z34.93 Encounter for supervision of normal pregnancy, unspecified, third trimester (principal); Z3A.36 36 weeks gestation of pregnancy
CPT/HCPCS: 80307

== ENCOUNTER 2021-07-07 06:48 | Outpatient (CLI) | payer MEDICAID, SELFPAY ==
[2021-07-07 10:54] VITALS: BP 109/68; PULSE 88; TEMP 36.8
[2021-07-07 11:16] VITALS: BP 109/68; PULSE 88; TEMP 36.8
--- NOTE | 2021-07-07 11:31 | W.OBNST ---
Date of service: 07/07/21 Time of Service: 10:32 NST Evaluation Reason for NST Reasons for Nonstress Test: OTHER, SEE COMMENT Reason for NST Other: elevated thyroid level Gestational Age Gestational Age in Weeks and Days: 37 Weeks and 6Days Test and Monitor Explained Test/Monitor Explained: Test Explained, Monitor Explained and Patient Verbalized Understanding Vital Signs Blood Pressure: 109/68 Pulse: 88 Temperature: 98.2 F Urine Results Urine Protein: Negative Urine Ketones: Negative Urine Glucose: Negative Urine Blood: Negative NST Information Date on Monitor: 07/07/21 Time on Monitor: 10:52 Date off Monitor: 07/07/21 Time off Monitor: 11:14 Total Time on Monitor: 22 NST Interventions: PO Hydration Contraction Frequency: 0 NST Evaluation Patient States Movement: Present FHR Baseline: 140 Variability: Moderate 6-25 bpm Accelerations: 15x15 Decelerations: None NST Results: Reactive Note NST Note NST Reviewed and Verified by: Lisa Chaparro
[2021-07-07 11:32] VITALS: BP 109/68; PULSE 88; TEMP 36.8
== END 2021-07-07 11:19 | disposition home or self-care (01) ==
LOC: BCD 06:53 → OBS 10:49
PROVIDERS: PCP Family Medicine; Visit Provider Advanced Practice Midwife
DX: O99.283 Endocrine, nutritional and metabolic diseases complicating pregnancy, third trimester (principal)
CPT/HCPCS: 59025

== ENCOUNTER 2021-07-13 08:18 | Outpatient (CLI) | payer MEDICAID, SELFPAY ==
[2021-07-13 10:55] VITALS: BP 112/73; PULSE 93
[2021-07-13 11:02] VITALS: BP 112/73; PULSE 93; TEMP 36.6
--- NOTE | 2021-07-13 11:41 | W.OBNST ---
Date of service: 07/13/21 Time of Service: 10:41 NST Evaluation Reason for NST Reasons for Nonstress Test: OTHER, SEE COMMENT Reason for NST Other: hyperthyroid Gestational Age Gestational Age in Weeks and Days: 37 Weeks and 6Days Test and Monitor Explained Test/Monitor Explained: Patient Verbalized Understanding Vital Signs Blood Pressure: 112/73 Pulse: 93 Temperature: 97.9 F NST Information Date on Monitor: 07/13/21 Time on Monitor: 11:05 Date off Monitor: 07/13/21 Time off Monitor: 11:33 Total Time on Monitor: 28 NST Interventions: None NST Evaluation Patient States Movement: Present Variability: Moderate 6-25 bpm Accelerations: 15x15 Decelerations: None NST Results: Reactive Note NST Note Note: NST done today for COVID in and Thyroid disease. She is feeling well. No signs of labor. Baby is active. Will repeat in 1 week or prn. NST is reactive and CAT I. NST Reviewed and Verified by: Shanell Rsoe
[2021-07-13 11:43] VITALS: BP 112/73; PULSE 93; TEMP 36.6
== END 2021-07-13 11:39 | disposition home or self-care (01) ==
LOC: BCD 08:20 → OBS 09:41 → BCD 10:57 → OBS 10:59
PROVIDERS: PCP Family Medicine; Visit Provider Advanced Practice Midwife
DX: O99.283 Endocrine, nutritional and metabolic diseases complicating pregnancy, third trimester (principal)
CPT/HCPCS: 59025

== ENCOUNTER 2021-07-15 10:22 | Outpatient (CLI) | payer MEDICAID, SELFPAY ==
[2021-07-15 10:49] VITALS: BP 116/82; PULSE 88; TEMP 36.6
[2021-07-15 10:53] VITALS: BP 116/82; PULSE 88
[2021-07-15 11:28] LABS: ROM Plus Negative
--- NOTE | 2021-07-15 13:09 | W.OBNST ---
Date of service: 07/15/21 Time of Service: 12:00 NST Evaluation Reason for NST Reasons for Nonstress Test: DECREASED MOVEMENT Gestational Age Gestational Age in Weeks and Days: 39 Weeks and 0Days Test and Monitor Explained Test/Monitor Explained: Test Explained, Monitor Explained and Patient Verbalized Understanding Vital Signs Blood Pressure: 116/82 Pulse: 88 Temperature: 97.9 F NST Information Date on Monitor: 07/15/21 Time on Monitor: 10:47 Date off Monitor: 07/15/21 Time off Monitor: 11:28 Total Time on Monitor: 41 NST Interventions: PO Hydration NST Evaluation Patient States Movement: Present FHR Baseline: 130 Variability: Moderate 6-25 bpm Accelerations: 15x15 Decelerations: None NST Results: Reactive Note NST Note Note: The baby was very active during exam. Nighat was at the Center for NST 07/13/21. She reports that she has been leaking fluid since 07/13. Neg pooling neg ROM plus. Signs of labor and ROM reviewed. NST Reviewed and Verified by: Shanell More
[2021-07-15 13:10] VITALS: BP 116/82; PULSE 88; TEMP 36.6
== END 2021-07-15 11:40 | disposition home or self-care (01) ==
LOC: BCD 10:24 → OBS 10:40
PROVIDERS: PCP Family Medicine; Visit Provider Advanced Practice Midwife
DX: O36.8131 Decreased fetal movements, third trimester, fetus 1 (principal); Z3A.39 39 weeks gestation of pregnancy
CPT/HCPCS: 59025; 84112

== ENCOUNTER 2021-07-20 07:20 | Outpatient (CLI) | payer MEDICAID, SELFPAY ==
[2021-07-20 10:51] VITALS: BP 109/74; PULSE 104; TEMP 37
[2021-07-20 11:09] VITALS: BP 109/74; PULSE 104
--- NOTE | 2021-07-20 12:10 | W.OBNST ---
Date of service: 07/20/21 Time of Service: 12:10 NST Evaluation Reason for NST Reasons for Nonstress Test: OTHER, SEE COMMENT Reason for NST Other: elevated thyroid Gestational Age Gestational Age in Weeks and Days: 39 Weeks and 5Days Test and Monitor Explained Test/Monitor Explained: Test Explained, Monitor Explained and Patient Verbalized Understanding Vital Signs Blood Pressure: 109/74 Pulse: 104 Temperature: 98.6 F NST Information Date on Monitor: 07/20/21 Time on Monitor: 10:51 Date off Monitor: 07/20/21 Time off Monitor: 11:36 Total Time on Monitor: 45 NST Interventions: PO Hydration NST Evaluation Patient States Movement: Present FHR Baseline: 140 Variability: Moderate 6-25 bpm Accelerations: 15x15 Decelerations: None NST Results: Reactive Note NST Note Note: Reactive NST, signs of labor reviewed. cervix 1/50/-1 soft NST Reviewed and Verified by: Shanell More
[2021-07-20 12:11] VITALS: BP 109/74; PULSE 104; TEMP 37
== END 2021-07-20 11:37 | disposition home or self-care (01) ==
LOC: BCD 07:23 → OBS 10:49
PROVIDERS: PCP Family Medicine; Visit Provider Advanced Practice Midwife
DX: O99.283 Endocrine, nutritional and metabolic diseases complicating pregnancy, third trimester (principal)
CPT/HCPCS: 59025; 87081

== ENCOUNTER 2021-07-23 05:44 | Inpatient (IN) | payer MEDICAID, SELFPAY ==
[2021-07-23] VITALS (11 sets, daily range): BP systolic 108–143; BP diastolic 62–88; PULSE 65–103; RESP 16–18; TEMP 36.6–37.1; O2SAT 100
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
[2021-07-23 08:08] LABS: Source Nasal/Nares
[2021-07-23 08:13] LABS: HCT 33.4 % (36.0-46.0); HGB 10.7 g/dL (11.2-15.7); MCH 26.9 pg (27.0-33.0); MCV 84 fL (80-95); RBC 3.98 10^6/uL (3.93-5.22); RDW 13.5 % (11.7-14.6); RDW-SD 41.3 fL
[2021-07-23 08:42] LABS: WBC 8.58 10^3/uL (4.4-10.8)
[2021-07-23 08:43] LABS: Platelet Count 158 10^3/uL (130-400)
[2021-07-23 09:02] LABS: COVID-19 PCR Negative (Negative)
--- NOTE | 2021-07-23 10:55 | W.PM.OBNL1 ---
Date of service: 07/23/21 Time of Service: 10:55 Pelvic Exam Dilation: 7 Effacement (%): 80 station: -1 Fetus A Monitor: Doppler Heart Rate Baseline: 140 FHR Rhythm: Regular Characteristics: Normal Amniotic Membrane Status: Ruptured Rupture Method: Artifical Amniotic Fluid: Clear Amount: moderate Date of Membrane Rupture: 07/23/21 Time of Membrane Rupture: 08:11 Assessment and Plan Assessment and plan (1) Spontaneous onset of labor: Status: Acute Assessment and plan: A: Active labor, multipara P: Anticipate Comfort measures as pt requests Objective Abnormal lab results 07/23/21 Range/Units 07:55 Hgb 10.7 L (11.2-15.7) g/dL Hct 33.4 L (36.0-46.0) % MCH 26.9 L (27.0-33.0) pg Temp Pulse Resp BP Pulse Ox 98.1 F 79 16 125/87 100 07/23/21 09:30 07/23/21 09:30 07/23/21 09:30 07/23/21 09:30 07/23/21 06:20 Laboratory Results WBC 8.58 10^3/uL (4.4-10.8) 07/23/21 07:55 RBC 3.98 10^6/uL (3.93-5.22) 07/23/21 07:55 Hgb 10.7 g/dL (11.2-15.7) L 07/23/21 07:55 Hct 33.4 % (36.0-46.0) L 07/23/21 07:55 MCV 84 fL (80-95) 07/23/21 07:55 MCH 26.9 pg (27.0-33.0) L 07/23/21 07:55 MCHC 32.0 % (32.0-36.0) 07/23/21 07:55 RDW 13.5 % (11.7-14.6) 07/23/21 07:55 Plt Count 158 10^3/uL (130-400) 07/23/21 07:55 MPV fL (8.0-11.0) 07/23/21 07:55 COVID-19 Source Nasal/Nares 07/23/21 07:33 SARS-CoV-2 (PCR) Negative (Negative) 07/23/21 07:33 Patient ABO/Rh AB Positive 07/23/21 07:55 Antibody Screen NEGATIVE 07/23/21 07:55 Objective Narrative Objective Narrative: Pt coping well with irregular contractions Reports she is feeling tired and sleepy Occasionally dozing between contractions Effective support from partner Intermittent auscultation is reassuring AROM earlier at 5-6 cm dilation for clear fluid Subjective Interval history since last seen: contractions have spaced out but become stronger, increased feelings of pelvic and rectal pressure. Was drinking water and apple juice, then emesis x1. Results Hemoglobin/Hematocrit: Hgb 10.7 g/dL (11.2-15.7) L 07/23/21 07:55 Hct 33.4 % (36.0-46.0) L 07/23/21 07:55 Abnormal Lab Findings: Abnormal Labs 07/23/21 07:55 Hgb 10.7 L Hct 33.4 L MCH 26.9 L
[2021-07-23] MEDS: Oxytocin 10 UNITS/ML VIAL IM (11:06)
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
[2021-07-23 12:50] LABS: Vitamin D 25 Total 19.8 ng/mL (30-100)
[2021-07-23] MEDS: Acetaminophen 325 MG TAB 650 MG PO (15:52)
[2021-07-24 02:00] VITALS: BP 114/72; PULSE 84; RESP 18; TEMP 37
[2021-07-24 07:45] VITALS: BP 130/90; PULSE 73; RESP 16; TEMP 36.8; O2SAT 98
[2021-07-24] MEDS: Acetaminophen 325 MG TAB 650 MG PO ×2 (08:14→13:18)
[2021-07-24] MEDS: Ibuprofen 600 MG TAB PO ×2 (08:14→15:24)
[2021-07-24] MEDS: Dibucaine 1% 28 GM TUBE TP (08:15)
[2021-07-24] MEDS: Hamamelis Leaf/Glycerin 100 EACH BOX PR (08:15)
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
== END 2021-07-24 15:55 | disposition home or self-care (01) | DRG 806 ==
PROVIDERS: Admitting Provider Advanced Practice Midwife; PCP Family Medicine; Visit Provider Advanced Practice Midwife
DX: O99.02 Anemia complicating childbirth (principal); O98.32 Other infections with a predominantly sexual mode of transmission complicating childbirth; Z37.0 Single live birth; Z3A.40 40 weeks gestation of pregnancy; A60.09 Herpesviral infection of other urogenital tract; Z86.16 Personal history of COVID-19; E55.9 Vitamin D deficiency, unspecified; O75.89 Other specified complications of labor and delivery; O99.62 Diseases of the digestive system complicating childbirth; K59.00 Constipation, unspecified; K21.9 Gastro-esophageal reflux disease without esophagitis
CPT/HCPCS: 36415; 82306; 85027; 86850; 86900; 86901; 87635; J2590

== ENCOUNTER 2022-03-12 09:27 | Outpatient (CLI) | payer MEDICAID, SELFPAY ==
--- NOTE | 2022-03-12 09:00 | DI.US_ITS ---
Exam(s) US SOFT TISSUE EXTREMITY EXAM: US SOFT TISSUE EXTREMITY CLINICAL HISTORY: concern for bent or broken Nexplanon,z30.46. TECHNIQUE: Ultrasound was performed using standard protocol. COMPARISON: US US OB MARIA R WEIGHT from 05/25/2021 FINDINGS: Dedicated ultrasound over the area of concern was performed, this being the area of the implanted con traceptive device. The contraceptive device is present in the superficial subcutaneous fat layer of the medial aspect of the upper arm. There is no abnormal fluid collection associated with it. Please note that plain films reveal a fracture at the waist mid level of the device. This is not abl e to be appreciated on ultrasound imaging. See plain film report IMPRESSION: As above. See plain film report. DATA REPOSITORY:
--- OUTSIDE RECORDS SUMMARY | 2022-03-12 09:31 | XMS_ITS ---
:1995 Author Organization [facility] Address [address], [place] [id number] Care Team Providers Name Role Phone Abdoul Fernandez Unavailable Unavailable PROBLEMS Unknown Problems ALLERGIES No Information ENCOUNTERS Encounter Location Date Diagnosis [address] Aug, Encounter f or other Healthcare [address]ational [address] [place], [place] admin [facility] [id number] examinations Z 02.89 [facility] [address] [facility] [address], [address] [place], [place] [id number] IMMUNIZATIONS No Known Immunizations SOCIAL HISTORY Never Assessed REASON FOR REFERRAL FUNCTIONAL STATUS PLAN OF CARE VITAL SIGNS MEDICATIONS Unknown Medications PROCEDURES Procedure Date Ordered Result Body Site OCD Urine Drug Screen (collection only) August 12, 2021 RESULTS Name Result Date Reference Range OCD URINE COLLECTION 2021-08-12 REASON FOR VISIT occ udc, OCC udc , New pt, sending for records. Insurance Providers [facility] Member Patient Patient Patient Patient Patient Subscriber Subscriber Subscriber Group Insurance Plan Plan Plan Plan ID Relationship Address Phone Name Date of ID Name Date of No Type Insurance Insurance Insurance Coverage to Subscriber Address Phone Name Dates OCD - [address] OCD - self Nighat [id number] ESCREEN [id number] [facility] [id number]
--- NOTE | 2022-03-12 09:52 | DI.RAD_ITS ---
Exam(s) XR HUMERUS RT EXAM: XR HUMERUS RT CLINICAL HISTORY: r/o broken or bent nexplanon, right upper arm, z30.46. TECHNIQUE: 2D digital imaging was performed. COMPARISON: No exams were available for comparison FINDINGS: Two views: Humerus is intact. Nexplanon device is in the subdural fat layer. It is slightly bent at the waist and is fractured at the waist but not distracted. IMPRESSION: The implanted contraceptive device is fractured at its mid level with slight bending. DATA REPOSITORY: RADIATION DOSE DELIVERED:
== END 2022-03-12 09:47 ==
LOC: DI 09:29
PROVIDERS: PCP Family Medicine; Visit Provider Advanced Practice Midwife
DX: Z30.46 Encounter for surveillance of implantable subdermal contraceptive (principal)
CPT/HCPCS: 76881; 73060

== ENCOUNTER 2022-06-02 08:25 | Emergency (ER) | payer MEDICAID, SELFPAY ==
[2022-06-02 08:29] VITALS: BP 101/67; PULSE 77; RESP 18; TEMP 36.9; O2SAT 96
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
--- NOTE | 2022-06-03 10:48 | NUR.NOTE ---
Nursing Note: Accessed chart for [facility] billing purposes.
== END 2022-06-02 09:10 | disposition home or self-care (01) ==
PROVIDERS: Emergency Provider Emergency Medicine Emergency Medical Services; PCP Family Medicine
DX: M65.4 Radial styloid tenosynovitis [de Quervain] (principal)
CPT/HCPCS: 29130

== ENCOUNTER 2022-07-16 01:04 | Outpatient (CLI) | payer MEDICAID, SELFPAY ==
[2022-07-16 13:28] LABS: Calculated LDL 66 mg/dL (<100); Cholesterol 166 mg/dL (<200); HDL Cholesterol 82 mg/dL (40-60); TSH (W/Ref FT4) 3.42 uIU/mL (0.36-3.74); Triglyceride 91 mg/dL (<150)
[2022-07-16 13:47] LABS: Vitamin D 25 Total 18.1 ng/mL (30-100)
== END 2022-07-16 01:05 | disposition home or self-care (01) ==
LOC: LOS 01:04
PROVIDERS: PCP Family Medicine; Visit Provider Family Medicine
DX: E03.9 Hypothyroidism, unspecified (principal); E78.5 Hyperlipidemia, unspecified; E55.9 Vitamin D deficiency, unspecified; G40.909 Epilepsy, unspecified, not intractable, without status epilepticus
CPT/HCPCS: 36415; 80061; 82306; 84443

== ENCOUNTER 2022-09-06 15:05 | Outpatient (REF) | payer MEDICAID, SELFPAY ==
[2022-09-07 14:10] LABS: Chlamydia Result Negative (Negative); GC Result Negative (Negative)
== END 2022-09-06 15:06 | disposition home or self-care (01) ==
LOC: LBN 15:05
PROVIDERS: PCP Family Medicine; Visit Provider Advanced Practice Midwife
DX: N89.8 Other specified noninflammatory disorders of vagina (principal); R10.2 Pelvic and perineal pain; Z11.3 Encounter for screening for infections with a predominantly sexual mode of transmission
CPT/HCPCS: 87491; 87591; 87480; 87510; 87660

== ENCOUNTER 2022-11-24 04:02 | Outpatient (CLI) | payer MEDICAID, SELFPAY ==
[2022-11-24 13:49] LABS: Vitamin D 25 Total 18.4 ng/mL (30-100)
== END 2022-11-24 04:03 | disposition home or self-care (01) ==
PROVIDERS: PCP Family Medicine; Visit Provider Family Medicine
DX: R79.89 Other specified abnormal findings of blood chemistry (principal); E55.9 Vitamin D deficiency, unspecified
CPT/HCPCS: 36415; 82306

== ENCOUNTER 2022-12-21 13:38 | Outpatient (REF) | payer MEDICAID, SELFPAY ==
--- NOTE | 2022-12-21 14:00 | PAPFT_PTH ---
PATIENT: Nighat Kuo LOC: [facility] U#:[id number] AGE/SX: 27/F ROOM: RE12/21/[address]: Lisa Chaparro CNM : 1995 BED: DIS: 12/21/2022 SPEC #: [id number] RECD: 12/22/22 13:09 STATUS: JANI REaB #: [id number] ARIA: 12/21/22 14:[address]: Lisa Chaparro DEPT: [facility] Cytology RECD BY: Estella Mary ENTERED: 12/22/22 13:09 SP TYPE: PAPFT OTHR DR: Raoul Fletcher MD Tissues: 1 - CX/ENDOCX FOR PAP SMEARS Procedures: PAP THIN PREP/UVM Screening Comments: [id number] (CHLAMYDIA/GC)
[2022-12-21 15:20] LABS: *AMPHETAMINES SCREEN URINE Negative (Negative); *BARBITURATES SCREEN URINE Negative (Negative); *BENZODIAZEPINES SCREEN URINE Negative (Negative); Cannabinoids THC Negative (Negative); Cocaine Screen,Urine Negative (Negative); METHADONE URINE SCREEN Negative (Negative); OPIATES URINE SCREEN Negative (Negative)
[2022-12-21 15:22] LABS: Tricyclic Antidepressants Negative (Negative)
[2022-12-23 14:37] LABS: Chlamydia Result Negative (Negative); GC Result Negative (Negative)
[2022-12-25 12:53] LABS: Buprenorphine Negative ng/mL (Cutoff: 5.0); Norbuprenorphine Negative ng/mL (Cutoff: 2.5)
== END 2022-12-21 13:39 | disposition home or self-care (01) ==
LOC: LBN 13:38
PROVIDERS: Advanced Practice Midwife; PCP Family Medicine; Visit Provider Advanced Practice Midwife
DX: Z34.91 Encounter for supervision of normal pregnancy, unspecified, first trimester (principal)
CPT/HCPCS: 80307; 80348; 87491; 87591; 88142; 87086; 87480; 87510; 87660

== ENCOUNTER 2022-12-21 18:16 | Outpatient (CLI) | payer MEDICAID, SELFPAY ==
[2022-12-21 14:36] LABS: Panorama Kit Sent via Fed Ex
[2022-12-21 14:39] LABS: Abs Immature Grans 0.02 10^3/uL (0.0-0.06); Absolute Basophil Count 0.03 10^3/uL (0.0-0.2); Absolute Eosinophil Count 0.19 10^3/uL (0.0-0.7); Absolute Lymphocyte Count 2.18 10^3/uL (1.2-3.4); Absolute Monocyte Count 0.43 10^3/uL (0.1-0.8); Basophils % 0.4; Eosinophils % 2.7; HGB 12.9 g/dL (11.2-15.7); Immature Grans % 0.3; Lymphocytes % 31.4; MCH 30.9 pg (27.0-33.0); MCHC 34.9 % (32.0-36.0); MCV 89 fL (80-95); Monocytes % 6.2; Platelet Count 206 10^3/uL (130-400); RBC 4.17 10^6/uL (3.93-5.22); RDW 11.9 % (11.7-14.6); RDW-SD 38.5 fL; WBC 6.95 10^3/uL (4.4-10.8)
[2022-12-21 15:41] LABS: TSH (W/Ref FT4) 2.95 uIU/mL (0.36-3.74)
[2022-12-21 16:04] LABS: Vitamin D 25 Total 15.7 ng/mL (30-100)
[2022-12-21 23:10] LABS: Thyroglobulin Antibody 289 U/mL (<=60); Thyroperoxidase Antibody >1300 U/mL (<=60)
[2022-12-22 09:18] LABS: HIV-1/2 Ag & Ab Screen Negative (Negative)
[2022-12-22 09:41] LABS: Hepatitis C Ab w Rflx HCV PCR Negative (Negative)
[2022-12-22 10:42] LABS: Varicella IgG Antibody Positive (See Note)
[2022-12-22 10:47] LABS: Rubella IgG Ab (UVM) Positive (See Note)
[2022-12-22 15:03] LABS: Hepatitis B Surface Ag Negative (Negative)
[2022-12-23 21:33] LABS: Syphilis IgG w/Reflex Nonreactive (Nonreactive)
[2023-01-02 14:38] LABS: Result Summary NEGATIVE; Specimen WB Whole Blood
== END 2022-12-21 18:17 | disposition home or self-care (01) ==
LOC: LBO 18:17
PROVIDERS: Advanced Practice Midwife; PCP Family Medicine; Visit Provider Advanced Practice Midwife
DX: Z34.91 Encounter for supervision of normal pregnancy, unspecified, first trimester (principal)
CPT/HCPCS: 36415; 81220; 81222; 82306; 86376; 86787; 86803; 86850; 86900; 86901; 87340; 87389; 84443; 85025; 86762; 86780

== ENCOUNTER → 2023-02-04 01:41 | Outpatient (CLI) | payer MEDICAID, SELFPAY ==
--- NOTE | 2023-02-04 07:30 | DI.US_ITS ---
Exam(s) US OB 2-3 TRIMESTER EXAM: US OB 2-3 TRIMESTER CLINICAL HISTORY: anatomy, survey, , Z34.91. TECHNIQUE: Transabdominal obstetrical ultrasound was performed. COMPARISON: US POCUS EXAM from 11/29/2022 FINDINGS: There is a single viable intrauterine gestation with cardiac activity identified-139 bpm. Amniotic fluid: There is a normal amount of amniotic fluid. Placental location: The placenta is posterior grade 1,with no evidence of placenta previa.There is 3 cm distance between the cord insertion and the margin of the placenta ANATOMY: A 3 vessel umbilical cord is seen. A four-chamber cardiac view was obtained. Right and left ventricular outflow tracts were imaged. There are no obvious abnormalities of the spinal column evident. There is no obvious abnormal ity of the anterior abdominal wall. stomach and urinary bladder are identified and there is no evidence of hydronephrosis. No abnormalities of the upper lip region are identified. No evidence of choroid plexus cysts i n the brain. Dating parameters place this at approximately 19 weeks and 1 day gestational age. BPD measures 18 weeks and 5 days HC measures 19 weeks and 3 days AC measures 19 weeks and 4 days FL measures 18 weeks and 6 days Estimated weight is 280 gm-0 pounds 10 ounces Fetus is at the 50th percentile on the Hadlock scale. IMPRESSION:: Single viable intrauterine gestation which is approximately 19 weeks and 1 day gestatio nal age, implying an JAYLEN of 06/30/2023. There are no obvious anomalies evident on today's study. The placenta is posterior with no evidence of placenta previa. There is a normal amount of amniotic fluid. DATA REPOSITORY:
== END ==
PROVIDERS: PCP Family Medicine; Visit Provider Advanced Practice Midwife
DX: Z34.91 Encounter for supervision of normal pregnancy, unspecified, first trimester (principal)
CPT/HCPCS: 76805

== ENCOUNTER → 2023-03-23 01:20 | Outpatient (CLI) | payer MEDICAID, SELFPAY ==
--- NOTE | 2023-03-23 12:18 | DI.US_ITS ---
Exam(s) US OB MARIA R WEIGHT EXAM: US OB MARIA R WEIGHT CLINICAL HISTORY: growth and MARIA R,r76.9,Z34.90,THYROID ANTI +. TECHNIQUE: Transabdominal obstetrical ultrasound performed. COMPARISON: US US OB 2-3 TRIMESTER from 02/04/2023 FINDINGS: Number of fetuses: 1 position: CEPHALIC Placental location: There is a grade 1 posterior placenta. No evidence of previa. BIOMETRIC DATA: BPD: 6.24cm, 25weeks 2days HC: 22.82cm, 24weeks 6days AC: 20.11cm, 24weeks 5days FL: 4.74cm, 25weeks 6days EFW: 779.25g, 1lb 11.32oz, 15.6% Composite Age: 25weeks 1day JAYLEN: 07/05/2023 Heart Rate: 148bpm Amniotic fluid index: 15.23cm. Visually, amount of fluid is within normal limits. IMPRESSION: 1. Single live intrauterine gestation as above. 2. Estimated weight is 779gms. This is the 16th percentile. 3. Amniotic fluid index is 15.2 cm. Visually within normal limits. DATA REPOSITORY:
== END ==
PROVIDERS: PCP Family Medicine; Visit Provider Advanced Practice Midwife
DX: Z34.92 Encounter for supervision of normal pregnancy, unspecified, second trimester (principal); R76.8 Other specified abnormal immunological findings in serum
CPT/HCPCS: 76816

== ENCOUNTER 2023-03-30 01:39 | Outpatient (CLI) | payer MEDICAID, SELFPAY ==
[2023-03-30 09:54] LABS: HCT 32.1 % (36.0-46.0); HGB 10.7 g/dL (11.2-15.7); MCH 30.3 pg (27.0-33.0); MCHC 33.3 % (32.0-36.0); MCV 91 fL (80-95); MPV 11.5 fL (8.0-11.0); Platelet Count 205 10^3/uL (130-400); RBC 3.53 10^6/uL (3.93-5.22); RDW 11.8 % (11.7-14.6); RDW-SD 39.5 fL; WBC 7.61 10^3/uL (4.4-10.8)
[2023-03-30 10:05] LABS: Glucose,1 Hr (Glucola) 108 mg/dL (80-140)
[2023-03-30 10:20] LABS: TSH (W/Ref FT4) 3.22 uIU/mL (0.36-3.74)
[2023-03-30 10:33] LABS: Vitamin D 25 Total 13.4 ng/mL (30-100)
== END 2023-03-30 01:40 | disposition home or self-care (01) ==
LOC: LBO 01:39
PROVIDERS: PCP Family Medicine; Visit Provider Advanced Practice Midwife
DX: Z34.92 Encounter for supervision of normal pregnancy, unspecified, second trimester (principal); R76.8 Other specified abnormal immunological findings in serum
CPT/HCPCS: 36415; 82306; 82950; 85027; 84443

== ENCOUNTER 2023-04-02 19:11 | Outpatient (CLI) | payer MEDICAID, SELFPAY ==
[2023-04-02 19:30] VITALS: BP 102/64; PULSE 86; TEMP 36.6
[2023-04-02 21:26] LABS: Bilirubin Negative (Negative); Blood Negative (Negative); Clarity Clear (Clear); Glucose Negative (Negative); Ketones Negative (Negative); Leukocyte Esterase Negative (Negative); Nitrite Negative (Negative); Urobilinogen 0.2 mg/dL (Up to 0.2)
[2023-04-02 21:35] LABS: COVID-19 PCR Negative (Negative); Influenza A PCR Negative (Negative); Influenza B PCR Negative (Negative); RSV PCR Negative (Negative); Source Nasopharynx
--- NOTE | 2023-04-02 22:05 | W.OBNST ---
Date of service: 04/02/23 Time of Service: 22:05 NST Evaluation Reason for NST Reasons for Nonstress Test: FALSE LABOR Gestational Age Gestational Age in Weeks and Days: 27 Weeks and 2Days Test and Monitor Explained Test/Monitor Explained: Test Explained Vital Signs Blood Pressure: 102/64 Pulse: 86 Temperature: 97.9 F NST Information Date on Monitor: 04/02/23 Time on Monitor: 20:08 Date off Monitor: 04/02/23 Time off Monitor: 21:12 Total Time on Monitor: 64 NST Interventions: None NST Evaluation Patient States Movement: Present FHR Baseline: 145 Variability: Moderate 6-25 bpm Accelerations: 10x10 Decelerations: None NST Results: Reactive Note Ultrasound Done: N/A. NST Note Note: Nighat experienced an episode at home of pain which was severe in her left flank and lower abdominal pressure. She then experienced dizziness which did not subside when she was lying down. She has had a sore throat for 3 days and reports that her left ear has been blocked. Her son has been sick for 2 weeks. She reports a history of UTIs but denies pyelonephritis. Reactive NST. No evidence of contractions. Nighat is drinking water and is well hydrated. Urinalysis is negative. RSV/Covid/flu swab taken and is negative. Throat culture pending. I reviewed signs of labor with Nighat and she was encouraged to return home to rest. I recommended calling in the morning if her symptoms persist. NST Reviewed and Verified by: Shanell More
[2023-04-02 22:11] VITALS: BP 102/64; PULSE 86; TEMP 36.6
== END 2023-04-02 22:20 | disposition home or self-care (01) ==
LOC: BCD 19:11 → OBS 19:38
PROVIDERS: PCP Family Medicine; Visit Provider Advanced Practice Midwife
DX: O47.03 False labor before 37 completed weeks of gestation, third trimester (principal); Z3A.27 27 weeks gestation of pregnancy
CPT/HCPCS: 87637; 59025; 81003; 87081; 87086; G0378

== ENCOUNTER → 2023-04-20 02:58 | Outpatient (CLI) | payer MEDICAID, SELFPAY ==
--- NOTE | 2023-04-20 08:30 | DI.US_ITS ---
Exam(s) US OB MARIA R WEIGHT EXAM: US OB MARIA R WEIGHT CLINICAL HISTORY: MARIA R,WT,THYROID ANTIBODY +,r76.8,Z34.90. TECHNIQUE: Transabdominal obstetrical ultrasound performed. COMPARISON: US US OB MARIA R WEIGHT from 03/23/2023 FINDINGS: Number of fetuses: 1 position: CEPHALIC Placental location: There is a grade 1 posterior placenta. No evidence of previa. BIOMETRIC DATA: BPD: 7.57cm, 30weeks 3days HC: 27.45cm, 30weeks AC: 25.24cm, 29weeks 3days FL: 5.66cm, 29weeks 5days EFW: 1,430.25g, 3lb 2.89oz, 29.9% Composite Age: 29weeks 6days JAYLEN: 06/30/2023 Heart Rate: 150bpm Amniotic fluid index: 11.86cm. Visually, amount of fluid is within normal limits. IMPRESSION: 1. Single live intrauterine gestation as above. 2. Estimated weight is 1430gms. This is the 30th percentile. 3. Amniotic fluid index is 11.9 cm. Visually within normal limits. DATA REPOSITORY:
== END ==
PROVIDERS: PCP Family Medicine; Visit Provider Advanced Practice Midwife
DX: R76.8 Other specified abnormal immunological findings in serum (principal); Z34.93 Encounter for supervision of normal pregnancy, unspecified, third trimester
CPT/HCPCS: 76816

== ENCOUNTER 2023-05-11 07:36 | Outpatient (CLI) | payer MEDICAID, SELFPAY ==
[2023-05-11 09:11] VITALS: BP 108/66; PULSE 89; TEMP 36.6
--- NOTE | 2023-05-11 09:42 | W.OBNST ---
Date of service: 05/11/23 Time of Service: 09:42 NST Evaluation Reason for NST Reasons for Nonstress Test: OTHER, SEE COMMENT Reason for NST Other: Hyperthyroid Gestational Age Gestational Age in Weeks and Days: 32 Weeks and 6Days Test and Monitor Explained Test/Monitor Explained: Test Explained, Monitor Explained and Patient Verbalized Understanding Vital Signs Blood Pressure: 108/66 Pulse: 89 Temperature: 97.9 F Urine Results Urine Protein: Negative Urine Ketones: Negative Urine Glucose: Negative Urine Blood: Negative NST Information Date on Monitor: 05/11/23 Time on Monitor: 09:01 Date off Monitor: 05/11/23 Time off Monitor: 09:24 Total Time on Monitor: 23 NST Interventions: PO Hydration and Notify Provider Contraction Frequency: 0 NST Evaluation Patient States Movement: Present FHR Baseline: 140 Variability: Moderate 6-25 bpm Accelerations: 15x15 Decelerations: None NST Results: Reactive Note Ultrasound Done: N/A. NST Note Note: NST reactive and reassuring. will have weekly NST due to hypothyroid. NST Reviewed and Verified by: Shanell Rose
[2023-05-11 09:43] VITALS: BP 108/66; PULSE 89; TEMP 36.6
== END 2023-05-11 09:27 ==
LOC: BCD 07:37 → OBS 09:04
PROVIDERS: PCP Family Medicine; Referring Provider Advanced Practice Midwife; Visit Provider Advanced Practice Midwife
DX: O99.891 Other specified diseases and conditions complicating pregnancy (principal); E03.9 Hypothyroidism, unspecified; Z3A.32 32 weeks gestation of pregnancy
CPT/HCPCS: 59025

== ENCOUNTER → 2023-05-18 04:33 | Outpatient (CLI) | payer MEDICAID, SELFPAY ==
--- NOTE | 2023-05-18 07:45 | DI.US_ITS ---
Exam(s) US OB MARIA R WEIGHT EXAM: US OB MARIA R WEIGHT CLINICAL HISTORY: MARIA R and weight,thyroid antibody +,r76.8,z34.90. TECHNIQUE: Transabdominal obstetrical ultrasound performed. COMPARISON: US US OB 2-3 TRIMESTER from 02/04/2023 US US OB MARIA R WEIGHT from 03/23/2023 US US OB MARIA R WEIGHT from 04/20/2023 FINDINGS:: Number of fetuses: One. position: Vertex. Placental location: Posterior. No evidence of previa. BIOMETRIC DATA: BPD: 84mm = 33+5 weeks HC: 306mm = 34+ 0 weeks AC: 280mm = 32+ 0 weeks FL: 64 mm = 33+1 weeks EFW: 2035 Gms = 15% Composite Age: 33+2 weeks JAYLEN: 04 Jul 2023 Heart Rate: 143BPM Amniotic fluid index: 12.8 cm. Amount of fluid is visually within normal limits. IMPRESSION: size and weight are within the low normal range. Normal MARIA R. DATA REPOSITORY:
== END ==
PROVIDERS: PCP Family Medicine; Visit Provider Advanced Practice Midwife
DX: Z34.93 Encounter for supervision of normal pregnancy, unspecified, third trimester (principal); Z3A.33 33 weeks gestation of pregnancy; R76.8 Other specified abnormal immunological findings in serum
CPT/HCPCS: 76816

== ENCOUNTER 2023-05-18 11:25 | Outpatient (CLI) | payer MEDICAID, SELFPAY ==
[2023-05-18 13:32] VITALS: BP 113/69; PULSE 96; TEMP 36.6
[2023-05-18 14:10] VITALS: BP 113/69; PULSE 96; TEMP 36.6
--- NOTE | 2023-05-18 14:10 | W.OBNST ---
Date of service: 05/18/23 Time of Service: 14:10 NST Evaluation Reason for NST Reasons for Nonstress Test: OTHER, SEE COMMENT Reason for NST Other: Hyperthyroid Gestational Age Gestational Age in Weeks and Days: 33 Weeks and 6Days Test and Monitor Explained Test/Monitor Explained: Test Explained, Monitor Explained and Patient Verbalized Understanding Vital Signs Blood Pressure: 113/69 Pulse: 96 Temperature: 97.9 F Urine Results Urine Protein: Negative Urine Ketones: Negative Urine Glucose: Negative Urine Blood: Negative NST Information Time on Monitor: 13:24 Date off Monitor: 05/18/23 Time off Monitor: 13:46 NST Interventions: PO Hydration and Notify Provider Contraction Frequency: 0 NST Evaluation Patient States Movement: Present FHR Baseline: 145 Variability: Moderate 6-25 bpm Accelerations: 15x15 Decelerations: None NST Results: Reactive Note Ultrasound Done: N/A. NST Note NST Reviewed and Verified by: Lisa Chaparro
== END 2023-05-18 14:00 ==
LOC: BCD 11:26 → OBS 13:29
PROVIDERS: PCP Family Medicine; Visit Provider Advanced Practice Midwife
DX: O99.282 Endocrine, nutritional and metabolic diseases complicating pregnancy, second trimester (principal); Z3A.33 33 weeks gestation of pregnancy
CPT/HCPCS: 59025

== ENCOUNTER 2023-06-01 08:47 | Outpatient (CLI) | payer MEDICAID, SELFPAY ==
[2023-06-01 09:05] VITALS: BP 103/63; PULSE 93; TEMP 36.4
[2023-06-01 10:24] LABS: HCT 30.1 % (36.0-46.0); HGB 9.6 g/dL (11.2-15.7); MCH 27.7 pg (27.0-33.0); MCHC 31.9 % (32.0-36.0); MCV 87 fL (80-95); MPV 12.6 fL (8.0-11.0); Platelet Count 216 10^3/uL (130-400); RBC 3.46 10^6/uL (3.93-5.22); RDW 12.3 % (11.7-14.6); RDW-SD 39.3 fL
[2023-06-01 10:58] VITALS: TEMP 36.4
[2023-06-01] MEDS: Normal Saline Flush 10 ML SYR IVP (10:58)
[2023-06-01 11:06] VITALS: BP 105/62; PULSE 71
[2023-06-01] MEDS: IRON SUCROSE COMPLEX 400 MG in Normal Saline 250 ML 100 MG IVPB (11:08)
[2023-06-01 11:20] VITALS: BP 105/62; PULSE 71; RESP 16; TEMP 36.8; O2SAT 98
--- NOTE | 2023-06-01 11:58 | W.OBNST ---
Date of service: 06/01/23 Time of Service: 11:59 NST Evaluation Reason for NST Reasons for Nonstress Test: OTHER, SEE COMMENT Reason for NST Other: Thyroid issues Gestational Age Gestational Age in Weeks and Days: 35 Weeks and 6Days Test and Monitor Explained Test/Monitor Explained: Test Explained Vital Signs Blood Pressure: 103/63 Pulse: 93 Temperature: 97.5 F Urine Results Urine Protein: Negative Urine Ketones: Negative Urine Glucose: Negative Urine Blood: Negative NST Information Date on Monitor: 06/01/23 Time on Monitor: 09:00 Date off Monitor: 06/01/23 Time off Monitor: 09:27 Total Time on Monitor: 27 NST Interventions: None Contraction Frequency: 1 NST Evaluation Patient States Movement: Present FHR Baseline: 140 Variability: Moderate 6-25 bpm Accelerations: 15x15 NST Results: Reactive Note Ultrasound Done: N/A. NST Note Note: NST is reactive and reassuring. Had IV iron sucrose 400 mg today due to anemia. Will repeat hgb next week to see if another transfusion is needed. GBS obtained. Return in 1 week for NST. SANDRA NST Reviewed and Verified by: Shanell Rose
[2023-06-01 12:00] VITALS: BP 103/63; PULSE 93; TEMP 36.4
== END 2023-06-01 12:53 | disposition home or self-care (01) ==
LOC: BCD 08:48 → OBS 08:59
PROVIDERS: PCP Family Medicine; Visit Provider Advanced Practice Midwife
DX: O99.283 Endocrine, nutritional and metabolic diseases complicating pregnancy, third trimester (principal); Z3A.36 36 weeks gestation of pregnancy
CPT/HCPCS: 59025; 36415; 85027; 96365; 96366; 87081; J1756

== ENCOUNTER 2023-06-08 07:05 | Outpatient (CLI) | payer MEDICAID, SELFPAY ==
[2023-06-08 08:57] VITALS: BP 116/74; PULSE 96
[2023-06-08 09:00] VITALS: BP 116/74; PULSE 96; TEMP 36.5
--- NOTE | 2023-06-08 11:21 | W.OBNST ---
Date of service: 06/08/23 Time of Service: 10:00 NST Evaluation Reason for NST Reasons for Nonstress Test: OTHER, SEE COMMENT Reason for NST Other: Thyroid Gestational Age Gestational Age in Weeks and Days: 36 Weeks and 6Days Test and Monitor Explained Test/Monitor Explained: Test Explained, Monitor Explained and Patient Verbalized Understanding Vital Signs Blood Pressure: 116/74 Pulse: 96 Temperature: 97.7 F NST Information Date on Monitor: 06/08/23 Time on Monitor: 08:56 Date off Monitor: 06/08/23 Time off Monitor: 09:30 Total Time on Monitor: 34 NST Interventions: PO Hydration Contraction Frequency: rare NST Evaluation Patient States Movement: Present FHR Baseline: 140 Variability: Moderate 6-25 bpm Accelerations: 15x15 Decelerations: None NST Results: Reactive Note Ultrasound Done: N/A. NST Note Note: 36+6 wks, GBS neg, fingerstick hgb 10.1 today (up from 9.6) Will have EFW/MARIA R next week, schedule iron infusion 200 mg IV for same day in infusion center Continue NST and check ups weekly NST Reviewed and Verified by: Lisa Chaparro
[2023-06-08 11:24] VITALS: BP 116/74; PULSE 96; TEMP 36.5
== END 2023-06-08 10:50 | disposition home or self-care (01) ==
LOC: BCD 07:05 → OBS 08:42
PROVIDERS: PCP Family Medicine; Visit Provider Advanced Practice Midwife
DX: O99.283 Endocrine, nutritional and metabolic diseases complicating pregnancy, third trimester (principal); Z3A.36 36 weeks gestation of pregnancy
CPT/HCPCS: 59025

== ENCOUNTER 2023-06-14 18:59 | Outpatient (CLI) | payer MEDICAID, SELFPAY ==
[2023-06-14 19:25] VITALS: BP 115/73; PULSE 106; RESP 16; TEMP 36.4; O2SAT 95
[2023-06-14 19:27] VITALS: PULSE 95; O2SAT 97
[2023-06-14 19:36] VITALS: BP 115/73; PULSE 103; TEMP 36.4
[2023-06-14 20:31] VITALS: BP 115/73; PULSE 95; RESP 16; TEMP 36.4; O2SAT 97
--- NOTE | 2023-06-14 21:29 | W.OBNST ---
Date of service: 06/14/23 Time of Service: 21:29 NST Evaluation Reason for NST Reasons for Nonstress Test: FALSE LABOR Gestational Age Gestational Age in Weeks and Days: 37 Weeks and 5Days Test and Monitor Explained Test/Monitor Explained: Test Explained Vital Signs Blood Pressure: 115/73 Pulse: 103 Temperature: 97.5 F Urine Results Urine Protein: Negative Urine Ketones: Positive Urine Glucose: Negative Urine Blood: Positive NST Information Date on Monitor: 06/14/23 Time on Monitor: 19:12 Date off Monitor: 06/14/23 Time off Monitor: 19:38 Total Time on Monitor: 26 NST Interventions: PO Hydration and Meal Given Contraction Frequency: irregular NST Evaluation Patient States Movement: Present FHR Baseline: 135 Variability: Moderate 6-25 bpm Accelerations: 15x15 Decelerations: Variable NST Results: Reactive Note Ultrasound Done: N/A. NST Note Note: Pt here for r/o SROM and r/o labor Neg ferning, neg nitrizine, cvx 1/50% midpelvis, vtx -3 Recheck after 2 hrs, cvx is unchanged Has ultrasound, NST and iron infusion scheduled for tomorrow Discharged to home, may return if labor onset or ROM during the night. NST Reviewed and Verified by: Lisa Chaparro
[2023-06-14 21:31] VITALS: BP 115/73; PULSE 103; TEMP 36.4
== END 2023-06-14 21:33 | disposition home or self-care (01) ==
LOC: BCD 19:02 → OBS 19:19
PROVIDERS: PCP Family Medicine; Visit Provider Advanced Practice Midwife
DX: O47.1 False labor at or after 37 completed weeks of gestation (principal); Z3A.37 37 weeks gestation of pregnancy
CPT/HCPCS: 59025; G0378

== ENCOUNTER → 2023-06-15 03:37 | Outpatient (CLI) | payer MEDICAID, SELFPAY ==
--- NOTE | 2023-06-15 07:45 | DI.US_ITS ---
Exam(s) US OB MARIA R WEIGHT EXAM: US OB MARIA R WEIGHT CLINICAL HISTORY: MARIA R and weight,thyroid antibody +,R76.8. TECHNIQUE: Transabdominal obstetrical ultrasound performed. COMPARISON: US US OB MARIA R WEIGHT from 05/18/2023 FINDINGS:: Number of fetuses: One. position: Vertex. Placental location: Posterior, grade 2. No evidence of previa. BIOMETRIC DATA: BPD: 94mm = 38+ 1 weeks HC: 337mm = 38+ 4 weeks AC: 312mm = 35+1 weeks FL: 74 mm = 37+ 6 weeks EFW: 2968 Gms = 28% Composite Age: 37 weeks 3 days JAYLEN: 03 Jul 2023 Heart Rate: 155 BPM Amniotic fluid index: 9.5 cm, near the low normal range. IMPRESSION: size and weight are within the expected range. DATA REPOSITORY:
== END ==
PROVIDERS: PCP Family Medicine; Visit Provider Advanced Practice Midwife
DX: R76.8 Other specified abnormal immunological findings in serum (principal); Z34.93 Encounter for supervision of normal pregnancy, unspecified, third trimester; Z3A.37 37 weeks gestation of pregnancy
CPT/HCPCS: 76816

== ENCOUNTER 2023-06-15 07:22 | Outpatient (CLI) | payer MEDICAID, SELFPAY ==
[2023-06-15 12:27] VITALS: BP 111/72; PULSE 78
[2023-06-15 12:33] VITALS: BP 111/78; PULSE 78; TEMP 36.7
[2023-06-15 12:51] LABS: HCT 31.6 % (36.0-46.0); HGB 10.2 g/dL (11.2-15.7); MCH 28.2 pg (27.0-33.0); MCHC 32.3 % (32.0-36.0); MCV 87 fL (80-95); MPV 12.7 fL (8.0-11.0); Platelet Count 184 10^3/uL (130-400); RBC 3.62 10^6/uL (3.93-5.22); RDW 14.1 % (11.7-14.6); RDW-SD 43.9 fL; WBC 6.63 10^3/uL (4.4-10.8)
--- NOTE | 2023-06-15 13:14 | W.OBNST ---
Date of service: 06/15/23 Time of Service: 13:14 NST Evaluation Reason for NST Reasons for Nonstress Test: OTHER, SEE COMMENT Reason for NST Other: Thyroid Gestational Age Gestational Age in Weeks and Days: 37 Weeks and 6Days Test and Monitor Explained Test/Monitor Explained: Test Explained, Monitor Explained and Patient Verbalized Understanding Vital Signs Blood Pressure: 111/78 Pulse: 78 Temperature: 98.1 F Urine Results Urine Protein: Negative Urine Ketones: Negative Urine Glucose: Negative Urine Blood: Positive NST Information Date on Monitor: 06/15/23 Time on Monitor: 12: Date off Monitor: 06/15/23 Time off Monitor: 12:54 Total Time on Monitor: 27 NST Interventions: PO Hydration and Notify Provider Contraction Frequency: Occasional NST Evaluation Patient States Movement: Present FHR Baseline: 135 Variability: Moderate 6-25 bpm Accelerations: 15x15 Decelerations: None NST Results: Reactive Note Ultrasound Done: N/A. NST Note Note: Nighat is here for weekly NST due to elevated thyroperoxidase. Reactive NST. She had US today and infusion of iron at the infusion center. CBC drawn which was 10.2 Hgb. repeat infusion scheduled next week and NST after. NST Reviewed and Verified by: Shanell More
[2023-06-15 13:16] VITALS: BP 111/78; PULSE 78; TEMP 36.7
== END 2023-06-15 13:00 ==
LOC: BCD 07:22 → OBS 12:20
PROVIDERS: Advanced Practice Midwife; PCP Family Medicine; Visit Provider Advanced Practice Midwife
DX: O99.283 Endocrine, nutritional and metabolic diseases complicating pregnancy, third trimester (principal); Z3A.37 37 weeks gestation of pregnancy; R94.6 Abnormal results of thyroid function studies
CPT/HCPCS: 59025; 85027

== ENCOUNTER 2023-06-22 04:32 | Outpatient (RCR) | payer MEDICAID, SELFPAY ==
[2023-06-15] MEDS: IRON SUCROSE COMPLEX 200 MG in Normal Saline 100 ML 440 MG IVPB (11:27)
[2023-06-15] MEDS: Normal Saline Flush 10 ML SYR IVP (11:27)
== END 2023-07-08 23:59 | disposition home or self-care (01) ==
LOC: INF 04:32
PROVIDERS: PCP Family Medicine; Visit Provider Advanced Practice Midwife
DX: O99.013 Anemia complicating pregnancy, third trimester
CPT/HCPCS: 96365; J1756

== ENCOUNTER 2023-06-22 07:16 | Outpatient (CLI) | payer MEDICAID, SELFPAY ==
[2023-06-22 08:26] VITALS: BP 112/72; PULSE 107; TEMP 36.5
--- NOTE | 2023-06-22 08:58 | W.OBNST ---
Date of service: 06/22/23 Time of Service: 08:58 NST Evaluation Reason for NST Reasons for Nonstress Test: OTHER, SEE COMMENT Reason for NST Other: Thyroid Gestational Age Gestational Age in Weeks and Days: 38 Weeks and 6Days Test and Monitor Explained Test/Monitor Explained: Test Explained, Monitor Explained and Patient Verbalized Understanding Vital Signs Blood Pressure: 112/72 Pulse: 107 Temperature: 97.7 F Urine Results Urine Protein: Positive Urine Ketones: Negative Urine Glucose: Negative Urine Blood: Positive NST Information Date on Monitor: 06/22/23 Time on Monitor: 08:13 Date off Monitor: 06/22/23 Time off Monitor: 08:43 Total Time on Monitor: 30 NST Interventions: PO Hydration Contraction Frequency: None NST Evaluation Patient States Movement: Present FHR Baseline: 145 Variability: Moderate 6-25 bpm Accelerations: 15x15 Decelerations: None NST Results: Reactive Note Ultrasound Done: N/A. NST Note Note: NST is reactive and reassuring. Will return in 1 week or prn. NST Reviewed and Verified by: Shanell Rose
[2023-06-22 08:59] VITALS: BP 112/72; PULSE 107; TEMP 36.5
== END 2023-06-22 08:50 ==
LOC: BCD 07:18 → OBS 08:24
PROVIDERS: PCP Family Medicine; Visit Provider Advanced Practice Midwife
DX: O99.283 Endocrine, nutritional and metabolic diseases complicating pregnancy, third trimester (principal); O47.1 False labor at or after 37 completed weeks of gestation; Z3A.38 38 weeks gestation of pregnancy
CPT/HCPCS: 59025; 87086

== ENCOUNTER 2023-06-22 16:02 | Outpatient (CLI) | payer MEDICAID, SELFPAY ==
[2023-06-22 16:26] VITALS: BP 115/64; PULSE 74; RESP 16; TEMP 36.4; O2SAT 97
--- NOTE | 2023-06-22 20:17 | W.OBNST ---
Date of service: 06/22/23 Time of Service: 18:40 NST Evaluation Reason for NST Reasons for Nonstress Test: FALSE LABOR Gestational Age Gestational Age in Weeks and Days: 38 Weeks and 6Days Test and Monitor Explained Test/Monitor Explained: Test Explained, Monitor Explained and Patient Verbalized Understanding Vital Signs Blood Pressure: 114/64 Pulse: 104 NST Information Date on Monitor: 06/22/23 Time on Monitor: 16:23 Date off Monitor: 06/22/23 Time off Monitor: 17:02 Total Time on Monitor: 39 NST Interventions: None Contraction Frequency: irregular NST Evaluation Patient States Movement: Present FHR Baseline: 120 Variability: Moderate 6-25 bpm Accelerations: 15x15 Decelerations: None NST Results: Reactive Note Ultrasound Done: N/A. NST Note Note: NST is reacitve and reassuring. VE internal OS 2, external OS 3, 50%, posterior, VTX -1. Contractions have spaced out and patient lives 10 minutes away so she has decided to go home and to call with more active labor or SROM. She has appointment for repeat NST in 1 week as well if undelivered. NST Reviewed and Verified by: Shanell Rose
[2023-06-22 20:22] VITALS: BP 114/64; PULSE 104
== END 2023-06-22 18:01 | disposition home or self-care (01) ==
LOC: BCD 16:02 → OBS 16:29 → BCD 06-23 08:19
PROVIDERS: PCP Family Medicine; Visit Provider Advanced Practice Midwife
DX: O99.283 Endocrine, nutritional and metabolic diseases complicating pregnancy, third trimester (principal); O47.1 False labor at or after 37 completed weeks of gestation; Z3A.38 38 weeks gestation of pregnancy
CPT/HCPCS: 59025

== ENCOUNTER 2023-06-27 13:54 | Outpatient (CLI) | payer MEDICAID, SELFPAY ==
[2023-06-27 14:23] VITALS: BP 131/77; PULSE 99
[2023-06-27 14:59] VITALS: BP 131/77; PULSE 99; TEMP 36.8
[2023-06-27 15:02] VITALS: BP 117/72; PULSE 82; RESP 16; TEMP 36.8; O2SAT 97
[2023-06-27 15:04] VITALS: PULSE 95
--- NOTE | 2023-06-27 15:04 | W.OBNST ---
Date of service: 06/27/23 Time of Service: 15:04 NST Evaluation Reason for NST Reasons for Nonstress Test: OTHER, SEE COMMENT Reason for NST Other: well being, rule out labor Gestational Age Gestational Age in Weeks and Days: 39 Weeks and 4Days Test and Monitor Explained Test/Monitor Explained: Test Explained, Monitor Explained and Patient Verbalized Understanding Vital Signs Blood Pressure: 131/77 Pulse: 99 Temperature: 98.2 F Urine Results Urine Protein: Negative Urine Ketones: Negative Urine Glucose: Negative Urine Blood: Negative NST Information Date on Monitor: 06/27/23 Time on Monitor: 14:19 Date off Monitor: 06/27/23 Time off Monitor: 14:44 Total Time on Monitor: 25 NST Interventions: PO Hydration NST Evaluation Patient States Movement: Present FHR Baseline: 140 Variability: Moderate 6-25 bpm Accelerations: 15x15 and 10x10 Decelerations: None NST Results: Reactive Note Ultrasound Done: N/A. NST Note Note: Kenneth reported strong contrcations at home. Now cesario every 10 minutes. Moderate strength. Reactive NST. She will ambulate x 2 hours and will plan to repeat examination. NST Reviewed and Verified by: Shanell More
[2023-06-27 15:05] VITALS: PULSE 94; O2SAT 97
[2023-06-27 15:06] VITALS: BP 117/72; BP 131/77; PULSE 82; PULSE 99; TEMP 36.8
== END 2023-06-27 15:40 | disposition home or self-care (01) ==
LOC: BCD 13:55 → OBS 14:00
PROVIDERS: PCP Family Medicine; Visit Provider Advanced Practice Midwife
DX: O47.1 False labor at or after 37 completed weeks of gestation (principal); Z3A.39 39 weeks gestation of pregnancy
CPT/HCPCS: 59025

== ENCOUNTER 2023-06-28 00:27 | Inpatient (IN) | payer MEDICAID, SELFPAY ==
[2023-06-28] VITALS (15 sets, daily range): BP systolic 103–138; BP diastolic 66–82; PULSE 68–88; RESP 16–18; TEMP 36.6–36.8; O2SAT 98
[2023-06-28] MEDS: Oxytocin 10 UNITS/ML VIAL IM (00:45)
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
[2023-06-28 01:16] LABS: HCT 36.7 % (36.0-46.0); MCH 28.5 pg (27.0-33.0); MCHC 32.7 % (32.0-36.0); MCV 87 fL (80-95); Platelet Count 167 10^3/uL (130-400); RBC 4.21 10^6/uL (3.93-5.22); RDW-SD 50.5 fL; WBC 9.53 10^3/uL (4.4-10.8)
--- NOTE | 2023-06-28 02:01 | W.OBDELIVERY ---
Date of service: 06/28/23 Time of Service: 02:01 OB Labor/ Delivery Information Baby A Delivery Delivery Method: Spontaneaous Presentation: Cephalic Vertex Position: Left Occipital Anterior Cord Description-Baby A: 3 Vessels Cord Description Comment: nuchal cord x 1 Amniotic Fluid: Clear Estimated Blood Loss: 200 Delivery Outcome: Liveborn Infant Transferred: Remains with Mother Note: membranes ruptured for a large amount of clear fluid immediately after SVE where she was found to be 7 cms. The baby's head delivered immediately after SROM. I assisted delivery of the shoulders. A loose nuchal cord was noted. Spontaneous delivery of female infant delivered in KIRIT position. Baby was placed on mother's abdomen and dried and stimulated. Spontaneous cry. Cord was clamped and cut by the baby's father. The placenta delivered spontaneously and appears to by intact with a three vessel cord. Pitocin 10 units IM was administered after delivery of the placenta. The perineum was inspected and was intact. After delivery, Mother and baby and father of the baby were stable and bonding well in the delivery room and there were no complications. The baby's name is Gillian Aggie Nurse Creative Director: Shanell More Nurse: Maria D Damon Labor/Delivery Information Number of Babies in Womb: 1 Steroids Given: None Reason Steroids Not Administered: N/A Group Beta Strep: Negative Antibiotics Administered: No Rubella Status: Immune Blood Type: AB+ Varicella Immunity: Immune Medication in Delivery: none Born En Route: No Maternal Complications: Precipitous Labor(<3hrs) Shoulder Dystocia: No Stages of Labor Onset of Labor Date: 06/27/23 Onset of Labor Time: 20:00 Complete Dilatation Date: 06/28/23 Complete Dilatation Time: 00:28 Labor - Stage 1 Duration: 4 hours and 28 minutes ROM Baby A: 06/28/23 ROM Baby A: 00:28 ROM Total Time- Baby A: [id number] Infant Delivery Date-Baby A: 06/28/23 Delivery Time-Baby A: 00:30 Labor Stage 2 Duration: 2 minutes Placenta Delivery Date-Baby A: 06/28/23 Placenta Delivery Time-Baby A: 00:39 Labor-Stage 3 Duration: 9 minutes Total Length of Labor-Baby A: 4 hours and 30 minutes Placenta Cultured: No Placenta Status: Delivered Baby A Gender: Female Gestational Status: Term (39-41.6 wks) Gestational Age in Weeks/Days: 39 Weeks and 5 Days Length-Baby A: 20 in Score-1 Minute Interval(Baby A) Heart Rate-1 minute: 100 BPM or Greater Respiratory Effort- 1 minute: Spontaneous/Strong Cry Muscle Tone-1 minute: Active Movement Reflex Response-1 minute: Prompt Response Color-1 minute: Pallor or Cyanosis Total Score-1 minute: 8 Score-5 Minute Interval(Baby A) Heart Rate- 5 minute: 100 BPM or Greater Respiratory Effort-5 minute: Spontaneous/Strong Cry Muscle Tone-5 minute: Active Movement Reflex Response-5 minute: Prompt Response Color-5 minute: Bluish Hands or Feet Total Score- 5 minute: 9
[2023-06-28] MEDS: Ibuprofen 600 MG TAB PO ×2 (07:26→13:28)
[2023-06-28] MEDS: Acetaminophen 325 MG TAB 650 MG PO ×2 (07:26→13:29)
[2023-06-29 08:00] VITALS: BP 97/69; PULSE 92; RESP 12; TEMP 37
--- NOTE | 2023-06-29 08:43 | W.PM.OBPNV1 ---
Date of service: 06/29/23 Time of Service: 08:43 Assessment and Plan Assessment and plan (1) Term delivered: Status: Acute Assessment and plan: A: Nml PPD#1, satisfied with experience Formula feeding, experienced mother with good supports P: Desires discharge to home today Planning NuvaRing for BCM Written instructions reviewed and given to pt RTO 2 and 6 wks Subjective Subjective Patient comments: No complaints, Pain well controlled, Tolerating diet and Bowel Movement Patient's Mood: happy [place] baby status: Doing well, Nursing well, Rooming in and Strong Bonding Observed [place] feeding status: Exclusively breast feeding Exam Physical Exam Vital signs: Temp Pulse Resp BP Pulse Ox 97.9 F 88 18 115/72 98 06/28/23 20:21 06/28/23 20:21 06/28/23 20:21 06/28/23 20:21 06/28/23 16:34 Vital Signs Reviewed: Yes Constitutional Constitutional: no acute distress, average body habitus and cooperative HEENT Exam HEENT Exam: Normal Neck Exam Neck Exam: Normal Breast Exam Bilateral: Breast Exam: Normal Nipple Exam: Normal Respiratory Exam Respiratory Exam: Normal Cardiovascular Exam Cardiovascular Exam: Normal Abdominal Exam Abdomen: Other (soft, nontender) Fundal Exam Fundus: Below Umbilicus and Firm Rectal Exam Rectal Exam: Normal Exam Perineum: Intact Extremities Exam Extremity Exam: Normal, Full ROM and Warm to Touch Back/Spine/Pelvis Exam Back Exam: Normal Skin Exam Skin Exam: Normal Neurological Exam Neurological Exam: Normal Psychiatric Exam Psychiatric Exam: Normal
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
== END 2023-06-29 10:20 | disposition home or self-care (01) | DRG 806 ==
PROVIDERS: Admitting Provider Advanced Practice Midwife; PCP Family Medicine; Visit Provider Advanced Practice Midwife
DX: O99.02 Anemia complicating childbirth (principal); O98.52 Other viral diseases complicating childbirth; Z37.0 Single live birth; Z3A.39 39 weeks gestation of pregnancy; O69.81X0 Labor and delivery complicated by cord around neck, without compression, not applicable or unspecified; O62.3 Precipitate labor; B00.9 Herpesviral infection, unspecified; O75.89 Other specified complications of labor and delivery; E55.9 Vitamin D deficiency, unspecified
CPT/HCPCS: 36415; 85027; 86850; 86900; 86901; J2590

== ENCOUNTER 2024-03-01 13:25 | Outpatient (REF) | payer MEDICAID, SELFPAY ==
[2024-03-05 12:02] LABS: Chlamydia Result Negative (Negative); GC Result Negative (Negative)
== END 2024-03-01 13:26 | disposition home or self-care (01) ==
LOC: LBN 13:25
PROVIDERS: PCP Family Medicine; Visit Provider Advanced Practice Midwife
DX: R30.0 Dysuria (principal); N39.0 Urinary tract infection, site not specified; Z20.2 Contact with and (suspected) exposure to infections with a predominantly sexual mode of transmission
CPT/HCPCS: 87077; 87491; 87591; 87086; 87186; 87480; 87510; 87660

== ENCOUNTER 2024-03-13 16:05 | Emergency (ER) | payer MEDICAID, SELFPAY ==
[2024-03-13 16:08] VITALS: BP 120/63; PULSE 76; RESP 16; TEMP 36.9; O2SAT 100
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
[2024-03-13 16:44] LABS: Bilirubin Negative (Negative); Blood Trace-intact (Negative); Clarity Clear (Clear); Glucose Negative (Negative); Ketones Negative (Negative); Leukocyte Esterase Negative (Negative); Nitrite Negative (Negative); Specific Gravity 1.015 (1.005-1.025); Urobilinogen 0.2 mg/dL (Up to 0.2); pH 5.5 (5-8)
[2024-03-13 16:50] LABS: Bacteria Negative HPF (Negative); C & S Indicated? No; Casts Negative LPF (Negative); Crystals Negative HPF (Negative); Epithelial Cells Negative HPF (Negative); Mucus Heavy (Negative); RBC 0-2 HPF (0-2); WBC Negative HPF (0-5)
[2024-03-13 16:56] LABS: *AMPHETAMINES SCREEN URINE Negative (Negative); *BARBITURATES SCREEN URINE Negative (Negative); *BENZODIAZEPINES SCREEN URINE Negative (Negative); Cannabinoids THC Negative (Negative); Cocaine Screen,Urine Negative (Negative); METHADONE URINE SCREEN Negative (Negative); OPIATES URINE SCREEN Negative (Negative); Tricyclic Antidepressants Negative (Negative)
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
--- NOTE | 2024-03-14 06:50 | W.EDPROG ---
Date of service: 03/13/24 Time of Service: 23:30 Medical Decision Making This patient was signed out to me. Please see previous notes for H&P and initial eval. In brief, 28yo F here voluntarily for SI, medically cleared, pending placement. Overnight no acute events. Signed out to oncoming physician, plan as above. Quality:[facility] Health Related Social Needs: No Data to Display Discharge Plan Discharge Details Chief Complaint: PsychEval Primary Care Provider: Raoul Fletcher ED Provider: Nighat Mendieta Home Meds and New Rx's Prescriptions: No Action valacyclovir [Valtrex] 500 mg tablet 500 mg PO DAILY PRN (Reason: Herpes outbreak) Qty: 90 4RF famotidine 20 mg tablet 20 mg PO DAILY PRN etonogestrel-ethinyl estradiol [NuvaRing] 0.12-0.015 mg/24 hr ring 1 vag ring vaginal Q3W Qty: 3 5RF Rx Instructions: leave in place for 3 weeks of a 4-week cycle fluoxetine 40 mg capsule 40 mg PO DAILY Qty: 30 1RF
--- NOTE | 2024-03-14 07:41 | W.EDPROG ---
Date of service: 03/14/24 Time of Service: 07:41 Medical Decision Making Patient signed out to me seeking voluntary placement for depression and thoughts of self-harm. No new acute complaints, will continue to monitor until safe disposition found Quality:SDOH Health Related Social Needs: No Data to Display Discharge Plan Discharge Details Chief Complaint: PsychEval Clinical Impression: Depression Primary Care Provider: Raoul Fletcher ED Provider: Nighat Mendieta Home Meds and New Rx's Prescriptions: No Action valacyclovir [Valtrex] 500 mg tablet 500 mg PO DAILY PRN (Reason: Herpes outbreak) Qty: 90 4RF famotidine 20 mg tablet 20 mg PO DAILY PRN etonogestrel-ethinyl estradiol [NuvaRing] 0.12-0.015 mg/24 hr ring 1 vag ring vaginal Q3W Qty: 3 5RF Rx Instructions: leave in place for 3 weeks of a 4-week cycle fluoxetine 40 mg capsule 40 mg PO DAILY Qty: 30 1RF
[2024-03-14] MEDS: FLUoxetine 20 MG CAP 40 MG PO (09:34)
--- NOTE | 2024-03-14 09:51 | W.EDPROG ---
Date of service: 03/14/24 Time of Service: 09:52 Medical Decision Making Spoke with CERTIFIED PHARMACY TECH Shayna Knight at the [facility] reviewed the case and accepts to the facility. Quality:SDOH Health Related Social Needs: No Data to Display Discharge Plan Disposition Specific Psychiatric Facility: [facility] Condition: Stable Discharge Details Chief Complaint: PsychEval Clinical Impression: Depression Primary Care Provider: Raoul Fletcher ED Provider: Leander Felix [place] Meds and New Rx's Prescriptions: No Action valacyclovir [Valtrex] 500 mg tablet 500 mg PO DAILY PRN (Reason: Herpes outbreak) Qty: 90 4RF famotidine 20 mg tablet 20 mg PO DAILY PRN etonogestrel-ethinyl estradiol [NuvaRing] 0.12-0.015 mg/24 hr ring 1 vag ring vaginal Q3W Qty: 3 5RF Rx Instructions: leave in place for 3 weeks of a 4-week cycle fluoxetine 40 mg capsule 40 mg PO DAILY Qty: 30 1RF
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
== END 2024-03-14 13:55 ==
PROVIDERS: Registered Nurse Emergency; Emergency Provider Emergency Medicine; PCP Family Medicine
DX: F32.A Depression, unspecified (principal); R45.851 Suicidal ideations
CPT/HCPCS: 00123; 80307; 81025; 96127; 99285; 81003; 81015

== ENCOUNTER 2024-05-01 11:30 | Outpatient (CLI) | payer MEDICAID, SELFPAY ==
[2024-05-01 13:04] LABS: Calculated LDL 77 mg/dL (<100); Cholesterol 209 mg/dL (<200); HDL Cholesterol 89 mg/dL (>or=50); Triglyceride 216 mg/dL (<150)
[2024-05-01 13:20] LABS: Hemoglobin A1C 5.1 % (<5.7)
[2024-05-02 09:39] LABS: HIV-1/2 Ag & Ab Screen Negative (Negative)
[2024-05-02 11:13] LABS: Syphilis Serology (RPR) Negative (Negative)
== END 2024-05-01 11:31 | disposition home or self-care (01) ==
LOC: LOS 11:30
PROVIDERS: Advanced Practice Midwife; PCP Family Medicine; Visit Provider Family Medicine
DX: R30.0 Dysuria (principal); Z11.3 Encounter for screening for infections with a predominantly sexual mode of transmission; E78.5 Hyperlipidemia, unspecified; R73.9 Hyperglycemia, unspecified
CPT/HCPCS: 36415; 80061; 87389; 83036; 86592

== ENCOUNTER 2024-05-06 07:20 | Emergency (ER) | payer MEDICAID, SELFPAY ==
--- NOTE | 2024-05-06 07:15 | DI.RAD_ITS ---
Exam(s) XR HIP RT COMPLETE AP PELVIS EXAM: XR HIP RT COMPLETE AP PELVIS CLINICAL HISTORY: hip pain. TECHNIQUE: 2D digital imaging was performed. COMPARISON: No exams were available for comparison FINDINGS: 3 views No evidence of pelvic nor hip fractures. No degenerative changes in the hips. No hip joint space na rrowing. No evidence of developmental dysplasia. No concerning osseous lesions on bone density is n ormal. Sacroiliac joints appear unremarkable. IMPRESSION: No significant osseous radiograph findings in the pelvis and hips DATA REPOSITORY: RADIATION DOSE DELIVERED:
[2024-05-06 07:23] VITALS: BP 115/78; PULSE 88; RESP 16; TEMP 36.3; O2SAT 97
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
[2024-05-06] MEDS: Acetaminophen 500 MG TAB 1000 MG PO (07:40)
--- NOTE | 2024-05-06 09:55 | DI.VRAD_ITS ---
PROCEDURE INFORMATION: Exam: XR Right Hip Exam date and time: 05/06/2024 7:51 AM Age: 28 years old Clinical indication: Other: Hip pain TECHNIQUE: Imaging protocol: Radiologic exam of the right hip. Views: 2 or 3 views hip with pelvis when performed. COMPARISON: US ABDOMEN PELVIS ULTRASOUND 08/18/2017 7:43 AM FINDINGS: Bones/joints: There is no hip fracture or dislocation. No significant degenerative changes are present in the hip joint. The acetabulum is intact. There is no pelvic fracture or bony abnormality. Sacroiliac joints and pubic symphysis are normal.. Soft tissues: Unremarkable. IMPRESSION: No acute findings. Dictated and Authenticated by: Klever Soto MD. Orderin Chente Eaton MD
== END 2024-05-06 08:10 | disposition home or self-care (01) ==
PROVIDERS: Emergency Provider Emergency Medicine; PCP Family Medicine
DX: S70.01XA Contusion of right hip, initial encounter (principal); W06.XXXA Fall from bed, initial encounter; Y93.89 Activity, other specified; Y92.013 Bedroom of single-family (private) house as the place of occurrence of the external cause
CPT/HCPCS: 99283; 73502

== ENCOUNTER 2024-05-30 17:49 | Emergency (ER) | payer MEDICAID, SELFPAY ==
[2024-05-30 17:53] VITALS: BP 120/78; PULSE 104; RESP 20; TEMP 36.3; O2SAT 98
[2024-05-30 17:55] VITALS: BP 120/78; PULSE 104; RESP 20; TEMP 36.3; O2SAT 98
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
--- NOTE | 2024-05-30 18:00 | DI.RAD_ITS ---
Exam(s) XR CHEST 2V PA LATERAL EXAM: XR CHEST 2V PA LATERAL CLINICAL HISTORY: cough. TECHNIQUE: 2D digital imaging was performed. COMPARISON: No exams were available for comparison FINDINGS: 2 views: Heart size is normal. The mediastinum is not widened. Lungs are clear. No infiltrates nor pleural effusions. IMPRESSION: No acute pulmonary findings. DATA REPOSITORY: RADIATION DOSE DELIVERED:
[2024-05-30 19:35] VITALS: PULSE 84; RESP 18; O2SAT 99
[2024-05-30 19:39] LABS: COVID-19 PCR Negative (Negative); Influenza A PCR Negative (Negative); Influenza B PCR Negative (Negative); RSV PCR Negative (Negative); Source Nasopharynx
[2024-05-30] MEDS: Albuterol HFA 8 GM 60 PUFF INH IH (20:01)
[2024-05-30 20:05] VITALS: BP 101/58; PULSE 90; RESP 18; O2SAT 99
== END 2024-05-30 20:08 | disposition home or self-care (01) ==
PROVIDERS: Emergency Provider Physician Assistant; PCP Family Medicine
DX: J06.9 Acute upper respiratory infection, unspecified (principal); R05.1 Acute cough
CPT/HCPCS: 99283 ×2; 87637; 71046

== ENCOUNTER 2024-06-30 13:18 | Emergency (ER) | payer MEDICAID, SELFPAY ==
[2024-06-30 13:29] VITALS: BP 123/87; PULSE 101; RESP 16; TEMP 36.9; O2SAT 98
[2024-06-30 13:36] VITALS: BP 123/87; PULSE 101; RESP 16; TEMP 36.9; O2SAT 98
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
--- NOTE | 2024-07-03 09:16 | NUR.NOTE ---
Accessed Pt chart to obtain Primary Care Provider for the Referral Paper. Form will be faxed to [facility]
--- NOTE | 2024-07-05 09:01 | NUR.NOTE ---
Access chart to get the PCP to send prior authorization for venlfaxine HCI ER 37.5mg ER capsules. Nursing Note:
== END 2024-06-30 13:58 | disposition home or self-care (01) ==
PROVIDERS: Emergency Provider Emergency Medicine; PCP Family Medicine
DX: R00.2 Palpitations (principal); T43.215A Adverse effect of selective serotonin and norepinephrine reuptake inhibitors, initial encounter; Y92.018 Other place in single-family (private) house as the place of occurrence of the external cause
CPT/HCPCS: 99283

== ENCOUNTER 2024-09-10 12:20 | Outpatient (CLI) | payer MEDICAID, SELFPAY ==
[2024-09-10 13:07] LABS: HCG Quant, Pregnancy < 1 mIU/mL (1-3)
== END 2024-09-10 12:21 | disposition home or self-care (01) ==
LOC: LBO 12:20
PROVIDERS: PCP Family Medicine; Visit Provider Advanced Practice Midwife
DX: R11.0 Nausea (principal)
CPT/HCPCS: 36415; 84702

== ENCOUNTER 2024-10-17 08:10 | Emergency (ER) | payer MEDICAID, SELFPAY ==
[2024-10-17 08:14] VITALS: BP 111/65; PULSE 87; RESP 16; TEMP 36.9; O2SAT 97
[2024-10-17 08:20] VITALS: BP 111/65; PULSE 87; RESP 16; TEMP 36.9; O2SAT 97
[2024-10-17 08:24] LABS: Glucose Negative (Negative)
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
[2024-10-17 08:35] LABS: C & S Indicated? Yes; WBC 20-50 HPF (0-5)
[2024-10-17 09:07] LABS: Abs Immature Grans 0.03 10^3/uL (0.0-0.06); HCT 38.9 % (36.0-46.0); HGB 13.2 g/dL (11.2-15.7); Immature Grans % 0.4 %; MCH 30.6 pg (27.0-33.0); MCHC 33.9 % (32.0-36.0); MCV 90 fL (80-95); MPV 12.5 fL (8.0-11.0); Platelet Count 155 10^3/uL (130-400); RBC 4.32 10^6/uL (3.93-5.22); RDW 11.8 % (11.7-14.6); RDW-SD 38.9 fL; WBC 8.07 10^3/uL (4.4-10.8)
[2024-10-17] MEDS: Ketorolac 15 MG/ML VIAL IVP (09:07)
[2024-10-17] MEDS: Normal Saline 1,000 ML 1000 ML IV (09:08)
[2024-10-17] MEDS: Acetaminophen 500 MG TAB 1000 MG PO (09:08)
[2024-10-17 09:31] LABS: ALT 15 U/L (14-59); AST 12 U/L (15-37); Albumin 3.6 g/dL (3.4-5.0); Alkaline Phosphatase 59 U/L (46-116); Anion Gap 6.2 mmol/L (3-11); BUN 7 mg/dL (7-18); Bilirubin, Total 0.4 mg/dL (0.2-1.0); CO2 27.8 mmol/L (21.0-32.0); Calcium 8.8 mg/dL (8.5-10.1); Chloride 104 mmol/L (98-107); Estimated GFR 122.99 (mL/min/1.73m2); Glucose 99 mg/dL (74-106); Lipase 23 U/L (<78); Potassium 4.1 mmol/L (3.5-5.1); Sodium 138 mmol/L (136-145); Total Protein 7.2 g/dL (6.4-8.2)
--- NOTE | 2024-10-17 09:59 | DI.CT_ITS ---
Exam(s) CT RENAL COLIC WO EXAM: CT RENAL COLIC WO CLINICAL HISTORY: L flank pain; dysuria. TECHNIQUE: Imaging Protocol: Axial computed tomography images with coronal and sagittal reformatted images were created and reviewed. COMPARISON: No exams were available for comparison FINDINGS: Lung Bases: No acute findings. Liver: Normal density. No measurable mass. Gallbladder and biliary tract: No radiodense calculus. No biliary ductal dilation. Pancreas: No abnormal calcifications or inflammatory process. Spleen: Normal size. Kidneys: Normal size, contour and axis.No radiodense stones or obstructive uropathy. No suspicious masses seen. Adrenal glands: No mass is seen. Lymph nodes: Within normal limits. Vasculature: Abdominal aorta non-dilated. Bladder:No stones. No gross wall thickening. No evidence of mass. Bowel: No obstruction. No bowel wall thickening. Peritoneal cavity: No ascites.No free air. No focal collection. No mesenteric inflammatory response. Reproductive organs: Within normal limits. Bones: Unremarkable for age. Soft Tissues: Within normal limits. IMPRESSION: Unremarkable noncontrast CT scan of the abdomen and pelvis. RADIATION DOSE DELIVERED: 537.57mGy.cm Total DLP 537.57mGy.cm Total DLP DATA REPOSITORY: All CT scans at this facility are submitted to the National Radiology Data Registry (NRDR) Dose Index Registry (DIR) with the [employer] ([employer]). RADIATION OPTIMIZATION: All CT scans at this facility use at least one of these dose optimization techniques: automated exposure control; mA and/or kV adjustment per patient size (includes targeted exams where dose is matched to clinical indication); or iterative reconstruction.
[2024-10-17 10:39] VITALS: BP 94/51; PULSE 72; RESP 16; TEMP 36.4; O2SAT 99
== END 2024-10-17 10:42 | disposition home or self-care (01) ==
PROVIDERS: General Practice; Emergency Provider Physician Assistant; PCP Family Medicine
DX: N39.0 Urinary tract infection, site not specified (principal); R10.30 Lower abdominal pain, unspecified; R30.0 Dysuria; R35.0 Frequency of micturition
CPT/HCPCS: 80053; 81025; 83690; 87077; 96361; 96374; 99284; 74176; 81003; 81015; 85025; 87086; 87186; J1885

== ENCOUNTER 2025-01-10 10:22 | Outpatient (REF) | payer MEDICAID, SELFPAY ==
[2025-01-10 17:02] LABS: Cannabinoids THC Negative (Negative); Fentanyl Scr w/Rflx to Conf, U Negative (Negative)
== END 2025-01-10 10:23 | disposition home or self-care (01) ==
LOC: LBN 10:22
PROVIDERS: PCP Family Medicine; Visit Provider Advanced Practice Midwife
DX: Z34.92 Encounter for supervision of normal pregnancy, unspecified, second trimester (principal)
CPT/HCPCS: 80307; 80348; 87086

== ENCOUNTER 2025-01-10 10:32 | Outpatient (CLI) | payer MEDICAID, SELFPAY ==
[2025-01-10 11:35] LABS: TSH (W/Ref FT4) 2.56 uIU/mL (0.55-4.78)
== END 2025-01-10 10:33 | disposition home or self-care (01) ==
LOC: LBO 10:34
PROVIDERS: Advanced Practice Midwife; PCP Family Medicine; Visit Provider Obstetrics & Gynecology
DX: Z34.92 Encounter for supervision of normal pregnancy, unspecified, second trimester (principal)
CPT/HCPCS: 36415; 86787; 86850; 86900; 86901; 84443